=== PATIENT | male | born 1955 | race American Indian/Alaskan Native ===

== ENCOUNTER 2024-07-14 10:39 | Outpatient (AMB) | payer MEDICARE, SELFPAY ==
--- NOTE | 2024-07-14 10:54 | MHC.PC.OV ---
Vital Signs 07/14/24 10:56 07/14/24 11:06 Height 5 ft 9.29 in Weight 199 lb BMI 29.1 BP 150/80 H 160/94 H Blood Pressure Location Lt brachial Lt brachial Position Sitting Pulse 57 Pulse Source Pulse Oximeter Temp 97.3 F Temp Source Skin Pulse Oximetry (%) 99 Oxygen Delivery Method Room Air Intake Visit Reasons: establish care Intake Note: Patiet is here today for re-establishment of care. [employer] Utility Supervisor Required: No Scroll Assembler: Not Required per policy Accompanied by: Self / Same As Patient Allergies No Known Drug Allergies Allergy (Unknown, Verified 07/14/24 11:09) NONE Medication List - Last Reconciled 07/14/24 by ALY Morrow No Known Home Meds Tobacco use date assessed: 07/14/24 Fall risk assessment: No Falls in past year Last assessed Fall Risk: 07/14/24 Dental Screening Dental Screen Date: 07/14/24 Did you have a dental visit in the last 12 months?: Yes Did you have a dental problem in the last 6 months where you did not have access to dental care?: No Was dental information given to patient?: Patient has dentist HPI establish care HPI Details Previous PCP: use to see dr. 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 hx of tinnitus-reports never getting it check Medications: excedrin otc Family HX: His older sister had a congenital hole in her heart Problem: 1.nasal congesgtion/intermittent cough, no sore throat. no fevers, denies sinus pressure smoker: 1 pack a day occasional marijuana alcohol: no The patient is a 69-year-old male that reports past medical history of high blood pressure, tinnitus, old DVT treated with Coumadin and resolved. He is presenting to establish care. He was a patient Dr. Zimmer in the past. Reports last being evaluated in 2018 Reports that he is doing well and he has been staying to himself ever since COVID hit. Denies any shortness of breath, chest pain, heart palpitation, dizziness, reports that he is moving his bowels regularly, denies abdominal pain or any urinary symptoms. sports injuries: Patient reported that he shattered his left knee and had an arthroscopic surgery, ended up with two blood clots in his left calf. Reports that he was placed on Coumadin for a while and until it was discontinued. right eye glaucoma- reports that he has no eye issues, he wears readers. He reports that he saw an certified master locksmith in the past and they mentioned glaucoma in his right eye. ---will referred to a hair specialist Reports ringing in the ear. Bilateral ears normal-appearing we will refer to speech and hearing for an evaluation --flu vacine in right arm today [facility] Surgical History No pertinent past surgical history Social History Housing: House Alcohol intake: never Patient Tobacco Use Status: Current everyday Tobacco user Tobacco use type: Cigarette Cigarette Packs Per Day: 1 Cigarettes Per Day: 20 e-Cigarette/Vaping Use: Never Used Second Hand Smoke Exposure: Yes service: No Current occupational status: retired Cognitive needs: No Hearing needs: No Vision needs: No Questionnaire PHQ-9 Over the last 2 weeks, how often have you been bothered by any of the following problems? 1. Little interest or pleasure in doing things: not at all 2. Feeling down, depressed, or hopeless: not at all 3. Trouble falling or staying asleep, or sleeping too much: not at all 4. Feeling tired or having little energy: not at all 5. Poor appetite or overeating: not at all 6. Feeling bad about yourself - or that you are a failure or have let yourself or your family down: not at all 7. Trouble concentrating on things, such as reading the newspaper or watching television: not at all 8. Moving or speaking so slowly that other people could have noticed. Or the opposite - being so fidgety or restless that you have been moving around a lot more than usual: not at all 9. Thoughts that you would be better off or of hurting yourself in some way: not at all Total score: 0 Depression Screening Interpretation: Negative Depression Screening Done: Yes 32397 - PHQ-9 Billing: Yes Source: Developed by Drs. Elia Cortez, Leoncio Ramos and colleagues, with an educational barbara from [employer]. Thrive Questionnaire Date Thrive assessed: 07/14/24 I am a: Patient What is your living situation today?: I have a steady place to live Within the past 12 months, did the food you bought not last and you didn't have the money to get more?: Never true Within the past 12 months, did you worry whether your food would run out before you got money to buy more?: Never true Do you have trouble paying for medicines?: No Do you have trouble getting transportation to medical appointments?: No Do you have trouble paying your heating and electricity bill?: No Do you have trouble taking care of your child, family member or friend?: No Do you have trouble with day-to-day activities such as bathing, preparing meals, shopping, managing finances, etc.?: No Are you currently unemployed and looking for a job?: No Are you interested in more education?: No Please select the resources that you would like help with: None Currently or been in a relationship where the following occur: No concerns reported THRIVE Score: 0 AUDIT C Alcohol Use Questionnaire (AUDIT-C) 1. How often do you have a drink containing alcohol?: Never Total Score: 0 VIK-7 AMB Questionnaire VIK-7 Date VIK - 7 assessed: 07/14/24 Feeling nervous, anxious, or on edge: 0 = Not at all Not being able to stop or control worryin = Not at all Worrying too much about different things: 0 = Not at all Trouble relaxin = Not at all Being so restless that it is hard to sit still: 0 = Not at all Becoming easily annoyed or irritable: 0 = Not at all Feeling afraid as if something awful might happen: 0 = Not at all Total VIK-7 score (0-4 normal; 5-9 mild; 10-14 moderate; 15-21 severe): 0 Source: Developed by Drs. Elia Cortez, Leoncio Ramos and colleagues, with an educational barbara from [employer]. VIK-7 Assessment Billing VIK-7 Assessment Tool: VIK-7 Assessment 93145 Review of Systems Const Details: Denies chills, Denies fatigue, Denies fever(s), Denies headache(s) and Denies weakness HEENT Denies change in vision, Denies dizziness, Denies headache(s), Denies hearing loss, reports ringing in ears, reports nasal congestion, Denies sinus pain, Denies sinus pressure and Denies sore throat Card Denies chest pain, Denies lightheadedness, Denies dyspnea and Denies other (palpitations) Resp Reports cough, Denies dyspnea and Denies wheezing GI Denies abdominal pain, Denies melena, Denies hematochezia, Denies change in bowel habits, Denies dyspepsia and Denies nausea Denies hematuria and Denies dysuria Musc Denies abnormal gait, Denies myalgias, Denies arthralgias, Denies numbness and Denies tingling Skin/Breast Denies rash, Denies unusual bruising and Denies wounds Neuro Denies abnormal gait, Denies dizziness, Denies headache(s), Denies memory loss, Denies numbness, Denies Sensory deficit (Neuro), Denies tingling and Denies weakness Psych Denies anxiety, Denies depression and Denies memory loss Endo Denies cold intolerance, Denies fatigue, Denies heat intolerance, Denies polydipsia and Denies polyuria Skinny/Lymph Denies easy bleeding and Denies easy bruising Aller/Immun Denies wheezing Physical exam (Primary Care) Vital Signs: Last Vital Signs Temp 97.3 F 07/14/24 10:56 Pulse 57 07/14/24 10:56 BP 150/80 H 07/14/24 10:56 Pulse Ox 99 07/14/24 10:56 Oxygen Delivery Method Room Air 07/14/24 10:56 BMI result Body Mass Index 29.1 Tobacco/Smoking Status: Tobacco use Status Tobacco use date assessed 07/14/24 07/14/24 11:04 Patient Tobacco Use Status Current everyday Tobacco 07/14/24 11:04 Tobacco use type Cigarette 07/14/24 11:04 e-Cigarette/Vaping Use Never Used 07/14/24 11:04 PHQ-9: PHQ-9 Score PHQ-9: Total score 0 07/14/24 17:13 Depression Screening Interpretation: Negative Thrive Assessment: Date of Thrive Assessment Date Thrive assessed 07/14/24 07/14/24 11:04 Currently or been in a relationship where the following occur: No concerns reported Const Other: General: no acute distress, well developed, alert and awake Nutritional Appearance: well nourished Orientation/consciousness: patient oriented x3 HENMT Head: Yes normocephalic and Yes atraumatic Ears: TM's normal bilaterally General nose exam: Bilateral nares erythematous with boggy turbinates Mouth: Normal oral and palatal mucosa present and moist mucous membranes Teeth and gingiva: dentition normal Throat: Yes oropharynx normal Eyes Pupils: Equal, round and reactive pupils present and Pupil accommodation reflex normal EOM: EOMs intact bilaterally Neck Neck: Yes normal visual inspection, Yes no lymphadenopathy and Yes trachea midline Thyroid: Thyroid normal Carotids: no bruits Lymphatic: no lymphadenopathy noted Chest Chest palpation & inspection: normal inspection of the chest Resp Effort & Inspection: normal respiratory effort Auscultation: clear to auscultation bilaterally Cardio Rate: regular rate Rhythm: regular rhythm Heart sounds: S1 normal heart sound present, S2 normal heart sound present, no gallops, no murmurs and no rubs Bruits: no abdominal aortic bruits and no carotid bruits GI Palpation (GI): Abdominal soft and nontender to palpation Auscultation: normal bowel sounds General: Yes no CVA tenderness Back/Spine/Pelvis Back: no CVA tenderness Cervical Spine: cervical ROM normal and No Cervical spine tenderness Thoracic/Lumbar Spine: thoraco-lumbar ROM normal, No pain with thoraco-lumbar ROM, No thoracic spinal tenderness and No lumbar spinal tenderness Skin General: warm and dry. Normal skin color. Normal skin turgor Lesions: no lesions Rashes: no rashes Trauma: no lacerations or abrasions Wounds: no wounds Nails: normal Neuro General: patient oriented x3, gait normal Cranial nerves: Yes Equal, round and reactive pupils present Cognition (Neuro): normal cognition Gait exam (Neuro): Normal gait present Extrem General: Yes normal to inspection, No edema and No calf tenderness Psych Appearance: grossly normal Affect: normal affect Attitude: cooperative Thought process: Normal thought process present Office Procedures Flu Questionnaire Does the patient have a severe egg allergy?: No Does the patient have severe life threatening allergies?: No Does the patient have a fever or illness today?: No Has the patient ever had Guillain-[place] Syndrome?: No Has the patient ever had any past reaction to a flu shot?: No Immunizations Fluarix Triv [id number] (PF) 45 mcg (15 mcg x 3)/0.5 mL IM syringe Performing Provider: ALY Morrow [place] [facility] [facility] Administered by: Chandrika Hall LPN on 07/14/24 11:24 Dose Route Admin Location Dispensed Lot Number Expiration Date NDC Habilitation Specialist 0.5 mL IM Right Deltoid 0.5 mL [id number] 12/25/24 [id number] [employer] VIS Given Date VIS Provided VIS Publication Date 07/14/24 Single Vaccine 21 Eligibility Eligibility Date Funding Source Not VFC Eligible 07/14/24 Private Coding Level of Care Code New Pt Level 4 (76695) Diagnoses Glaucoma of right eye, unspecified glaucoma type H40.9 Glaucoma type: unspecified Laterality: right Tinnitus of both ears H93.13 Laterality: bilateral Elevated blood pressure reading R03.0 Nasal congestion R09.81 Subacute cough R05.2 Cough type: subacute Additional Codes VIK-7 Assessment Billing - VIK-7 Assessment Tool: VIK-7 Assessment 49576 ([id number]) PHQ-9 - 11191 - PHQ-9 Billing: Yes ([id number]) Time Spent (min) 35 Assessment & Plan Assessment & Plan (1) Glaucoma: Code(s): H40.9 - Unspecified glaucoma Category: Medical Qualifiers: Glaucoma type: unspecified Laterality: right Qualified Code(s): H40.9 - Unspecified glaucoma (2) Ringing in ears: Code(s): H93.19 - Tinnitus, unspecified ear Category: Medical Qualifiers: Laterality: bilateral Qualified Code(s): H93.13 - Tinnitus, bilateral Plan: Reports that he has ringing in the here for a long time but has not gotten it checked Ear canals and TMs normal appearing We will refer to the hearing and speech center for an evaluation (3) Elevated blood pressure reading: Code(s): R03.0 - Elevated blood-pressure reading, without diagnosis of hypertension Category: Medical Plan: Patient blood pressure was elevated in office today. Reports that he does not have high blood pressure but remembered being prescribed lisinopril 5 mg daily in the past Patient been seems to 2018 and is reestablishing care today. Will start the patient on lisinopril 5 mg daily and have him come back in 4 weeks for blood pressure check in a physical exam. Encouraged patient to monitor blood pressure frequently Reinforced a low-sodium diet (4) Nasal congestion: Code(s): R09.81 - Nasal congestion Category: Medical Plan: Reports a nasal congestion that has been causing him to cough intermittently Bilateral nares with erythema and boggy turbinate Flonase and loratadine ordered (5) Cough: Code(s): R05.9 - Cough, unspecified Category: Medical Qualifiers: Cough type: subacute Qualified Code(s): R05.2 - Subacute cough Plan: Ordered benzonatate 100 mg b.i.d. Encourage fluid intake Plan return in a month to get blood pressure check Orders: Orders Comprehensive [place]. Panel Fast Today I10 - Essential (primary) hypertension, Z00.00 - Encounter for general adult medical examination without abnormal findings Lipid Panel Today I10 - Essential (primary) hypertension, Z00.00 - Encounter for general adult medical examination without abnormal findings Vitamin D 25-OH Total Today I10 - Essential (primary) hypertension, Z00.00 - Encounter for general adult medical examination without abnormal findings UA CC w/rflx Micro + Cult Today I10 - Essential (primary) hypertension, Z00.00 - Encounter for general adult medical examination without abnormal findings Glucose Fasting Today I10 - Essential (primary) hypertension, Z00.00 - Encounter for general adult medical examination without abnormal findings PSA,Total (Free>4and<10) Today I10 - Essential (primary) hypertension, Z00.00 - Encounter for general adult medical examination without abnormal findings Influenza [id number] Immunization Today Z23 - Encounter for immunization Complete Blood Count Auto Diff Today I10 - Essential (primary) hypertension, Z00.00 - Encounter for general adult medical examination without abnormal findings TSH reflex Free T4 Today I10 - Essential (primary) hypertension, Z00.00 - Encounter for general adult medical examination without abnormal findings Referrals Speech and Hearing Referral H93.19 - Tinnitus, unspecified ear Ophthalmology Referral H40.9 - Unspecified glaucoma Medications: New fluticasone propionate 50 mcg/actuation (Allergy Relief (fluticasone)) administer into each nostril 1 spray intranasal BID 16 grams 3RF benzonatate 100 mg PO BID 60 caps 1RF lisinopril 5 mg PO DAILY 30 tabs 3RF loratadine 10 mg PO DAILY PRN 30 tabs 2RF allergy symptoms
[2024-07-14 10:56] VITALS: BP 150/80; PULSE 57; TEMP 36.3; O2SAT 99; BMI 29.1
[2024-07-14 11:06] VITALS: BP 160/94
== END 2024-07-14 11:48 | disposition home or self-care (01) ==
PROVIDERS: PCP Internal Medicine
DX: H40.9 Unspecified glaucoma (principal); H93.13 Tinnitus, bilateral; R03.0 Elevated blood-pressure reading, without diagnosis of hypertension; R09.81 Nasal congestion; R05.2 Subacute cough; Z23 Encounter for immunization

== ENCOUNTER → 2024-07-14 10:39 | Outpatient (BNVA) | payer MEDICARE, SELFPAY | PROVIDERS: PCP Internal Medicine | DX: Z23 Encounter for immunization (principal); H40.9 Unspecified glaucoma | CPT/HCPCS: 90471; 90656; 96127; 99202 ==

== ENCOUNTER 2024-08-04 06:53 | Emergency (ER) | payer MEDICARE, SELFPAY ==
--- NOTE | ~2024-08-04 | XR_ITS ---
EXAMINATION: XR RIBS 2 VIEWS RIGHT HISTORY: prior injury, worsening pain COMPARISON: Correlation is made with PA and lateral views of the chest performed earlier in the day. FINDINGS: Five views of the right ribs are submitted. There is a nondisplaced fracture of the lateral aspect of the 7th rib. No additional fracture is seen. There is subsegmental atelectasis at the right lung base. XR/XR ribs RT 2V IMPRESSION: Nondisplaced fracture of the right 7th rib. Electronically signed by: Elia Mcginnis MD 08/04/2024 10:13 AM RIVER
--- NOTE | ~2024-08-04 | XR_ITS ---
EXAMINATION: XR CHEST CLINICAL INFORMATION: right sided pain and cough. COMPARISON: None available. TECHNIQUE: 2 views of the chest were obtained. FINDINGS: The cardiac, hilar, and mediastinal contours are normal. The lungs are somewhat hyperaerated, however clear bilaterally. There is no pneumothorax or pleural effusion. There is no focal osseous or soft tissue abnormality. XR/XR chest 2V IMPRESSION: No active pulmonary disease. Electronically signed by: Harsha Canada MD 08/04/2024 08:01 AM RIVER
[2024-08-04 07:04] VITALS: BP 147/103; PULSE 75; RESP 18; TEMP 36.9; O2SAT 98; BMI 27.0
--- NOTE | 2024-08-04 09:44 | ED.GENADULT ---
HPI - General Adult General Chief complaint: General Medical Stated complaint: R Arm Pain Time Seen by Provider: 08/04/24 09:43 Source: patient, RN notes reviewed and old records reviewed Mode of arrival: ambulatory Limitations: no limitations History of Present Illness ED Provider: Ariane NEWTON narrative: Patient is a 69-year-old male presenting to the emergency department with complaint of right rib pain as well as cough productive of yellow sputum. Patient reports that he fell and injured his right ribs in early May but was never evaluated after the injury. States that he has had coughing for the last 4 days which has been aggravating his rib pain. Denies fevers. Denies chest pain or palpitations. MD complaint: rib pain, cough Treatments prior to arrival: none Related Data Previous Rx's ?Medication ?Instructions ?Recorded benzonatate 100 mg capsule 100 mg PO BID #60 caps 07/14/24 fluticasone propionate 50 1 spray intranasal BID #16 grams 07/14/24 mcg/actuation nasal spray,suspension (Allergy Relief (fluticasone)) lisinopril 5 mg tablet 5 mg PO DAILY #30 tabs 07/14/24 loratadine 10 mg tablet 10 mg PO DAILY PRN allergy 07/14/24 symptoms #30 tabs albuterol sulfate 90 mcg/actuation 2 puff inhalation Q4-6H PRN 08/04/24 aerosol inhaler shortness of breath or wheezing #6.7 grams azithromycin 250 mg tablet See Rx Instructions PO .COMPLEX #6 08/04/24 tabs benzonatate 100 mg capsule 100 mg PO TID PRN cough #20 caps 08/04/24 ibuprofen 600 mg tablet 600 mg PO TID PRN pain #20 tabs 08/04/24 lidocaine 5 % topical patch 1 patch topical DAILY #15 ea 08/04/24 prednisone 20 mg tablet 40 mg (2 x 20 mg) PO DAILY #10 tabs 08/04/24 Allergies Allergy/AdvReac Type Severity Reaction Status Date / Time No Known Drug Allergies Allergy Unknown NONE Verified 08/04/24 07:06 Review of Systems Review of Systems: As per HPI Yes all other systems are reviewed and are negative Constitutional: Constitutional: Reports as per HPI PMFSH Past Medical History Surgical History No pertinent past surgical history Social History Social History Housing: House Alcohol intake: never Patient Tobacco Use Status: Current everyday Tobacco user Tobacco use type: Cigarette Cigarette Packs Per Day: 1 Cigarettes Per Day: 20 e-Cigarette/Vaping Use: Never Used Second Hand Smoke Exposure: Yes Advance Directives: No Advance Directives Information Provided: No service: No Current occupational status: retired Cognitive needs: No Hearing needs: No Vision needs: No Physical Exam ED Vital Signs: Vital Signs - 24 hr 08/04/24 07:04 Temperature 98.4 F Pulse Rate 75 Respiratory Rate 18 Blood Pressure 147/103 H Pulse Oximetry 98 Oxygen Delivery Method Room Air BMI result Body Mass Index 27.0 Vital signs have been reviewed and appear to be correct. Blood pressure elevated. Heart rate normal. Respiratory rate normal. Temperature normal. Oxygen saturation normal. Const General: cooperative, healthy appearing and no acute distress Orientation/consciousness: oriented to person, oriented to place, oriented to time and patient oriented x3 Limitations: no limitations [facility] Head: Yes normocephalic and Yes atraumatic Ears: external ears normal General nose exam: Normal external nose present Face and sinus: Yes face symmetric Mouth: oropharynx normal and moist mucous membranes Throat: Yes uvula midline Eyes Pupils: Equal, round and reactive pupils present Neck Neck: Yes normal visual inspection and Yes supple Chest Chest palpation & inspection: normal inspection of the chest and tenderness rib right posterior-axillary line involving the 6th rib, involving the 7th rib and involving the 8th rib Resp Effort & Inspection: normal respiratory effort and able to speak in complete sentences Auscultation: clear to auscultation bilaterally and wheezes scattered wheezes Cardio Rate: regular rate Rhythm: regular rhythm Heart sounds: S1 normal heart sound present and S2 normal heart sound present GI Palpation (GI): Soft to palpation and nontender Auscultation: normoactive bowel sounds General: Yes no CVA tenderness Back/Spine/Pelvis Back: no CVA tenderness Skin General skin exam: elasticity normal and turgor normal Neuro General: oriented to person, oriented to place, oriented to time, patient oriented x3, moves all extremities, no focal motor deficits and CN's II-XI intact bilaterally Cranial nerves: Yes Equal, round and reactive pupils present Cognition (Neuro): normal cognition Extrem General: Yes full ROM, Yes no pedal edema and Yes no calf tenderness Psych Mental Status: mental status grossly normal Affect: normal affect Thought process: Normal thought process present Medical Decision Making Medical Decision Making [facility] Narrative: Patient is a 69-year-old male presenting to the emergency department with complaint of right rib pain as well as cough productive of yellow sputum. On exam patient is awake, A+Ox3, VS WNL, afebrile, normal neurological exam without focal deficits, physical exam findings as above. Given reported symptoms and physical exam findings, initial differential includes but is not limited to rib contusion versus fracture, bronchitis, pneumonia. X-ray chest without evidence of pneumonia. Xray ribs notable for nondisplaced 7th right rib fracture. My interpretation is in agreement with the radiologist's interpretation. Physical exam findings consistent with bronchitis. Patient updated on results and all questions answered. Will provide patient with incentive spirometer, treat for bronchitis with azithromycin, albuterol, prednisone. Will prescribe topical lidocaine patches and ibuprofen for rib pain. Discussed with patient that he should splint with pillows, apply ice intermittently. Follow up with PCP. Return precautions discussed at bedside. Patient verbalized understanding of and agreement with plan. Differential Diagnosis Differential Diagnoses: The differential diagnosis associated with the presentation includes as per [facility] Admission/Observation Consideration of admission/observation: Escalation of care including admission/observation considered Patient would have been admitted to the hospital had their work up had any findings where hospital admission was appropriate and their clinical presentation warranted hospital admission. Independent Interpretation I performed an independent interpretation of an: Plain X-Ray Interpretation: X-ray chest without evidence of pneumonia. Xray ribs notable for nondisplaced 7th right rib fracture. Radiology Impression Discussion of test interpretation with radiology: I have reviewed the radiologist's reading. Radiologist Impression: XR/XR ribs RT 2V IMPRESSION: Nondisplaced fracture of the right 7th rib. XR/XR chest 2V IMPRESSION: No active pulmonary disease. External Record Review External record reviewed: Inpatient record, Office record and Outpatient record Prescription Management I considered prescription management with: Pain Medication, Antibiotic and Other Discharge Plan Discharge Clinical Impression: Right rib fracture, Bronchitis Patient Disposition: Home, Self-Care Instructions: How to Use an Incentive Spirometer (ED), Rib Fracture (ED), Acute Bronchitis (ED) Additional Instructions: You were evaluated in the emergency department today for right-sided rib pain. Your x-ray showed a fracture of your right 7th rib. You were provided with an incentive spirometer, use this as instructed. You are being treated with a course of antibiotics, cough medicine, an inhaler and a short course of steroids for bronchitis. Follow-up with your primary care provider as needed. Return to the emergency department if you develop worsening pain, shortness of breath or difficulty breathing, fevers or any other new or concerning symptoms. Prescriptions: New lidocaine 5 % adhesive patch,medicated 1 patch topical DAILY Qty: 15 0RF Rx Instructions: leave on most painful area for up to 12 hrs azithromycin 250 mg tablet See Rx Instructions .ROUTE .COMPLEX Qty: 6 0RF Rx Instructions: For 250 mg dose pack: take 500 mg today (day 1), then 250 mg for 4 days (days 2-5) prednisone 20 mg tablet 40 mg PO DAILY Qty: 10 0RF albuterol sulfate 90 mcg/actuation HFA aerosol inhaler 2 puff inhalation Q4-6H PRN (Reason: shortness of breath or wheezing) Qty: 6.7 0RF benzonatate 100 mg capsule 100 mg PO TID PRN (Reason: cough) Qty: 20 0RF ibuprofen 600 mg tablet 600 mg PO TID PRN (Reason: pain) Qty: 20 0RF No Action lisinopril 5 mg tablet 5 mg PO DAILY Qty: 30 3RF fluticasone propionate [Allergy Relief (fluticasone)] 50 mcg/actuation spray,suspension 1 spray intranasal BID Qty: 16 3RF Rx Instructions: administer into each nostril loratadine 10 mg tablet 10 mg PO DAILY PRN (Reason: allergy symptoms) Qty: 30 2RF benzonatate 100 mg capsule 100 mg PO BID Qty: 60 1RF Print Language: Hebrew
--- NOTE | 2024-08-04 10:35 | PC.NURSE ---
incentive spirometry teaching applied to pt. pt verbalized teachback.
[2024-08-04 11:23] VITALS: BP 147/103; PULSE 75; RESP 18; TEMP 36.9; O2SAT 98
== END 2024-08-04 11:25 | disposition home or self-care (01) ==
PROVIDERS: Emergency Provider Emergency Medicine Emergency Medical Services; PCP Internal Medicine
DX: S22.31XA Fracture of one rib, right side, initial encounter for closed fracture (principal); J40 Bronchitis, not specified as acute or chronic; R07.89 Other chest pain; R05.9 Cough, unspecified; F17.210 Nicotine dependence, cigarettes, uncomplicated; X58.XXXA Exposure to other specified factors, initial encounter; Y93.9 Activity, unspecified; Y92.9 Unspecified place or not applicable; Y99.8 Other external cause status
CPT/HCPCS: 71046; 71100; 99282; 99283

== ENCOUNTER → 2024-08-04 07:08 | Outpatient (BNV) | payer MEDICARE, SELFPAY | PROVIDERS: PCP Internal Medicine; Visit Provider Radiology Diagnostic Radiology | DX: S22.31XA Fracture of one rib, right side, initial encounter for closed fracture (principal); R07.89 Other chest pain; R05.9 Cough, unspecified | CPT/HCPCS: 71046 ==

== ENCOUNTER 2024-08-14 11:31 | Outpatient (AMB) | payer MEDICARE, SELFPAY ==
--- NOTE | 2024-08-14 11:52 | A.OFFPC_ITS ---
Vital Signs 08/14/24 11:53 Height 6 ft Weight 191 lb 8 oz BMI 26.0 BP 130/78 Blood Pressure Location Lt brachial Position Sitting Pulse 58 Pulse Source Pulse Oximeter Temp 97.1 F Temp Source Temporal Artery Scan Pulse Oximetry (%) 96 Oxygen Delivery Method Room Air Intake Visit Reasons: pe Intake Note: Patient is here today for a physical. 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 Accompanied by: Self / Same As Patient Allergies No Known Drug Allergies Allergy (Unknown, Verified 08/14/24 12:04) NONE Medication List - Last Reconciled 08/14/24 by ALY Morrow albuterol sulfate 90 mcg/actuation 2 puffs inhalation Q4-6H PRN benzonatate 100 mg PO TID PRN fluticasone propionate 50 mcg/actuation (Allergy Relief (fluticasone)) 1 spray intranasal BID lidocaine 5% 1 patch topical DAILY lisinopril 5 mg PO DAILY loratadine 10 mg PO DAILY PRN Tobacco use date assessed: 08/14/24 Fall risk assessment: 1 Fall in past year Last assessed Fall Risk: 08/14/24 Dental Screening Dental Screen Date: 07/14/24 Did you have a dental visit in the last 12 months?: Yes Did you have a dental problem in the last 6 months where you did not have access to dental care?: Yes Was dental information given to patient?: Patient has dentist HPI pe HPI Details Dentist: He has appt next month for dentures Eye: referral was placed on last visit Snellen: Right: Left: Corrected vision: Questioned needing glasses STI screening:n/a Colonoscopy: due will put in a referral Pap Smer:n/a Flu:up to date COVID: declines Tdap: given in right deltoid Diet: regular Exercise: physical labor at work The patient is a 69-year-old male is presenting for annual physical He denies shortness of breath, denies chest pain, denies heart palpitation or dizziness Denies abdominal pain or change in bowel habits Denies urinary symptoms Patient continue to complain of tinnitus. A small piece of white object removed from left ear ENT referral in place Patient complain of right elbow discomfort, status post fall on ice. On exam: Elbow red, swollen and tender to palpation Meloxicam 15 mg ordered The patient is due for colonoscopy and a referral was placed Small cut to right thumb noted-mupirocin ointment ordered [facility] Surgical History No pertinent past surgical history Social History Housing: House Alcohol intake: never Patient Tobacco Use Status: Current everyday Tobacco user Tobacco use type: Cigarette Cigarette Packs Per Day: 1 Cigarettes Per Day: 20 e-Cigarette/Vaping Use: Never Used Second Hand Smoke Exposure: Yes service: No Current occupational status: retired Cognitive needs: No Hearing needs: No Vision needs: No Questionnaire Thrive Questionnaire Date Thrive assessed: 08/14/24 I am a: Patient What is your living situation today?: I have a steady place to live Within the past 12 months, did the food you bought not last and you didn't have the money to get more?: I choose not to answer this question Within the past 12 months, did you worry whether your food would run out before you got money to buy more?: I choose not to answer this question Do you have trouble paying for medicines?: I choose not to answer this question Do you have trouble getting transportation to medical appointments?: I choose not to answer this question Do you have trouble paying your heating and electricity bill?: I choose not to answer this question Do you have trouble taking care of your child, family member or friend?: I choose not to answer this question Do you have trouble with day-to-day activities such as bathing, preparing meals, shopping, managing finances, etc.?: I choose not to answer this question Are you currently unemployed and looking for a job?: I choose not to answer this question Are you interested in more education?: I choose not to answer this question Please select the resources that you would like help with: None THRIVE Score: 0 VIK-7 AMB Questionnaire VIK-7 Date VIK - 7 assessed: 07/14/24 Source: Developed by Drs. Elia Cortez, Dennise Hensley, Leoncio Cervantes and colleagues, with an educational barbara from [employer] Review of Systems Const Details: Denies chills, Denies fatigue, Denies fever(s), Denies headache(s) and Denies weakness HEENT Denies change in vision, Denies dizziness, Denies headache(s), Denies hearing loss, Denies nasal congestion, Denies sinus pain, Denies sinus pressure and Denies sore throat, + tinnitus in bilateral ears Card Denies chest pain, Denies lightheadedness, Denies dyspnea and Denies other (palpitations) Resp Denies cough, Denies dyspnea and Denies wheezing GI Denies abdominal pain, Denies melena, Denies hematochezia, Denies change in bowel habits, Denies dyspepsia and Denies nausea Denies hematuria and Denies dysuria Musc Denies abnormal gait, Denies myalgias, +arthralgias (right elbow), Denies numbness and Denies tingling Skin/Breast Denies rash, Denies unusual bruising and Denies wounds Neuro Denies abnormal gait, Denies dizziness, Denies headache(s), Denies memory loss, Denies numbness, Denies Sensory deficit (Neuro), Denies tingling and Denies weakness Psych Denies anxiety, Denies depression and Denies memory loss Endo Denies cold intolerance, Denies fatigue, Denies heat intolerance, Denies polydipsia and Denies polyuria Skinny/Lymph Denies easy bleeding and Denies easy bruising Aller/Immun Denies wheezing Physical exam (Primary Care) Vital Signs: Last Vital Signs Temp 97.1 F 08/14/24 11:53 Pulse 58 08/14/24 11:53 BP 130/78 08/14/24 11:53 Pulse Ox 96 08/14/24 11:53 Oxygen Delivery Method Room Air 08/14/24 11:53 BMI result Body Mass Index 26.0 Tobacco/Smoking Status: Tobacco use Status Tobacco use date assessed 08/14/24 08/14/24 12:00 Patient Tobacco Use Status Current everyday Tobacco 08/14/24 12:00 Tobacco use type Cigarette 08/14/24 12:00 e-Cigarette/Vaping Use Never Used 08/14/24 12:00 Thrive Assessment: Date of Thrive Assessment Date Thrive assessed 08/14/24 08/14/24 12:00 Const Other: General: no acute distress, well developed, alert and awake Nutritional Appearance: well nourished Orientation/consciousness: patient oriented x3 HENMT Head: Yes normocephalic and Yes atraumatic Ears: hearing grossly normal bilaterally and TM's normal bilaterally, +small piece of right arm check noted in left ear and was removed General nose exam: Normal external nose present and Normal nares present Mouth: Normal oral and palatal mucosa present and moist mucous membranes Eyes Pupils: Equal, round and reactive pupils present and Pupil accommodation reflex normal EOM: EOMs intact bilaterally Neck Neck: Yes normal visual inspection, Yes no lymphadenopathy and Yes trachea midline Thyroid: Thyroid normal Carotids: no bruits Lymphatic: no lymphadenopathy noted Chest Chest palpation & inspection: normal inspection of the chest Resp Effort & Inspection: normal respiratory effort Auscultation: clear to auscultation bilaterally Cardio Rate: regular rate Rhythm: regular rhythm Heart sounds: S1 normal heart sound present, S2 normal heart sound present, no gallops, no murmurs and no rubs Bruits: no abdominal aortic bruits and no carotid bruits GI Palpation (GI): No Abdominal aortic bruit present, Soft to palpation, nontender, No hepatosplenomegaly present and No Rebound tenderness present Auscultation: normal bowel sounds General: Yes no CVA tenderness Back/Spine/Pelvis Back: no CVA tenderness Cervical Spine: cervical ROM normal and No Cervical spine tenderness Thoracic/Lumbar Spine: thoraco-lumbar ROM normal, No pain with thoraco-lumbar ROM, No thoracic spinal tenderness and No lumbar spinal tenderness + right elbow erythema and pain Skin General: warm and dry. Normal skin color. Normal skin turgor Lesions: no lesions Rashes: no rashes Trauma: Right thumb cut Wounds: no wounds Nails: normal Neuro General: patient oriented x3, gait normal and CN's II-XI intact bilaterally Cranial nerves: Yes Equal, round and reactive pupils present Cognition (Neuro): normal cognition Gait exam (Neuro): Normal gait present Motor exam (neuro): 5/5 motor strength present throughout Sensory Exam: No Sensory deficit (Neuro) Deep tendon reflexes (DTR's): Right patellar reflex intensity grade: 2+ and Left patellar reflex intensity grade: 2+ Extrem General: Yes normal to inspection, No edema and No calf tenderness Psych Appearance: grossly normal Affect: normal affect Attitude: cooperative Thought process: Normal thought process present Immunizations Boostrix Tdap 2.5 Lf unit-8 mcg-5 Lf/0.5 mL intramuscular syringe Performing Provider: ALY Morrow Performing Location: [facility] Administered by: TRACI Arriola on 08/14/24 12:18 Dose Route Admin Location Dispensed Lot Number Expiration Date [employer] Business [employer]st 0.5 mL IM Right Deltoid 0.5 mL [id number] 10/14/26 [id number] [facility] V[facility] Given Date VIS Provided VIS Publication Date 08/14/24 Single Vaccine 21 Eligibility Eligibility Date Funding Source Not VFC Eligible 08/14/24 Private Coding Level of Care Code Est Pt Prev Care >65y(20909) Diagnoses Annual physical exam Z00.00 Glaucoma of right eye, unspecified glaucoma type H40.9 Glaucoma type: unspecified Laterality: right Tinnitus of both ears H93.13 Laterality: bilateral Elevated blood pressure reading R03.0 Nasal congestion R09.81 Subacute cough R05.2 Cough type: subacute Cut of skin of right thumb S61.011A Time Spent (min) 37 Assessment & Plan Assessment & Plan (1) Annual physical exam: Code(s): Z00.00 - Encounter for general adult medical examination without abnormal findings Category: Medical Plan: Patient is due for colonoscopy. A referral was placed to gastro. The patient is up-to-date on flu vaccine, tetanus shot given in office. The patient declines COVID vaccine. Labs ordered for the patient to do as soon as possible (2) Glaucoma: Code(s): H40.9 - Unspecified glaucoma Category: Medical Qualifiers: Glaucoma type: unspecified Laterality: right Qualified Code(s): H40.9 - Unspecified glaucoma Plan: Patient reports that he was told a while back that he had glaucoma in 1 of his eyes We will refer the patient to Ophthalmology (3) Ringing in ears: Code(s): H93.19 - Tinnitus, unspecified ear Category: Medical Qualifiers: Laterality: bilateral Qualified Code(s): H93.13 - Tinnitus, bilateral Plan: Reports that he has ringing in the here for a long time but has not gotten it checked Small piece of white object removed from left ear The patient was referral to ENT on the previous visits (4) Elevated blood pressure reading: Code(s): R03.0 - Elevated blood-pressure reading, without diagnosis of hypertension Category: Medical Plan: Reinforced a low-sodium diet Continue lisinopril 5 mg daily (5) Nasal congestion: Code(s): R09.81 - Nasal congestion Category: Medical Plan: Reports a nasal congestion that has been causing him to cough intermittently Bilateral nares with erythema and boggy turbinate Flonase and loratadine ordered ---resolved (6) Cough: Code(s): R05.9 - Cough, unspecified Category: Medical Qualifiers: Cough type: subacute Qualified Code(s): R05.2 - Subacute cough Plan: Ordered benzonatate 100 mg b.i.d. patient reports that the cough has improved significantly and he only coughs once in a while Encourage fluid intake (7) Cut of skin of right thumb: Code(s): S61.011A - Laceration without foreign body of right thumb without damage to nail, initial encounter Category: Medical Plan: Patient accidentally cut himself with a kitchen knife. Mupirocin ointment ordered Orders: Orders TDaP Immunization 08/14/24 Z23 - Encounter for immunization Referrals Gastroenterology Referral Z12.11 - Encounter for screening for malignant neoplasm of colon, Z12.12 - Encounter for screening for malignant neoplasm of rectum Medications: New meloxicam 15 mg PO DAILY 30 tabs 2RF mupirocin 2% 1 appl topical BID 22 grams 0RF S61.011A - Laceration without foreign body of right thumb without damage to nail, initial encounter
[2024-08-14 11:53] VITALS: BP 130/78; PULSE 58; TEMP 36.2; O2SAT 96; BMI 26.0
== END 2024-08-14 12:44 | disposition home or self-care (01) ==
PROVIDERS: PCP Internal Medicine
DX: Z23 Encounter for immunization (principal)

== ENCOUNTER → 2024-08-14 11:31 | Outpatient (BNVA) | payer MEDICARE, SELFPAY | PROVIDERS: PCP Internal Medicine | DX: Z00.00 Encounter for general adult medical examination without abnormal findings (principal); Z23 Encounter for immunization; H40.9 Unspecified glaucoma; H93.13 Tinnitus, bilateral; R03.0 Elevated blood-pressure reading, without diagnosis of hypertension; R05.2 Subacute cough; S61.011D Laceration without foreign body of right thumb without damage to nail, subsequent encounter | CPT/HCPCS: 90471; 90715; 99212 ==

== ENCOUNTER 2024-08-20 21:27 | Emergency (ER) | payer MEDICARE, SELFPAY ==
--- NOTE | 2024-08-20 | ECG_ITS ---
Test Reason : FOUND UNRESPONSIVE Blood Pressure : */* mmHG Vent. Rate : 68 BPM Atrial Rate : 68 BPM P-R Int : 182 ms QRS Dur : 96 ms QT Int : 424 ms P-R-T Axes : 71 14 67 degrees QTcB Int : 450 ms Sinus rhythm with occasional Premature ventricular complexes Nonspecific T wave abnormality Abnormal ECG No previous ECGs available Referred By: Generic ED Physician Electronically Signed By: NAGI SIMMONS
[2024-08-20 21:30] VITALS: BP 204/100; PULSE 86; O2SAT 97
[2024-08-20 21:40] VITALS: BP 157/84; PULSE 71; RESP 18; TEMP 36.8; O2SAT 98; BMI 25.1
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
[2024-08-20 22:17] LABS: Basophils Absolute Auto 0.1 X10*3/uL (0.0-0.2); Basophils Percent Auto 0.2 % (0-2); Eosinophils Absolute Auto 0.1 X10*3/uL (0.0-0.4); Eosinophils Percent Auto 0.3 % (0-4); Hematocrit 33.6 % (42.0-52.0); Hemoglobin 11.5 g/dl (14.0-18.0); Imm Gran Abs Auto 0.15 X10*3/uL (0.00-0.03); Imm Gran Pct Auto 0.6 % (0.0-0.4); Lymphocytes Absolute Auto 0.9 X10*3/uL (1.2-4.9); Lymphocytes Percent Auto 3.7 % (20-40); MANUAL DIFF FLAG SCAN; Mean Corpuscular HGB Conc 34.2 g/dl (31.0-36.0); Mean Corpuscular Hemoglobin 31.6 pg (27.0-33.0); Mean Corpuscular Volume 92.3 fL (80.0-98.0); Mean Platelet Volume 11.1 fL (9.4-12.4); Monocytes Percent Auto 4.2 % (2-11); Neutrophils Absolute Auto 22.3 x10*3/uL (2.0-8.3); Platelet Count 231 X10*3/uL (160-400); Red Blood Count 3.64 X10*6/uL (4.60-5.80); Red Cell Distribution Width 13.6 % (11.0-16.0); SCAN SMEAR FLAG 1; White Blood Count 24.5 X10*3/uL (4.8-10.8)
[2024-08-20 22:31] LABS: Anion Gap 12 (12-20); Blood Urea Nitrogen 29 mg/dL (9-16); Calcium 9.1 mg/dL (8.4-10.2); Carbon Dioxide 26 mmol/L (22-29); Chloride 108 mmol/L (96-108); Creatinine Clr Calc Pharmacy 60.9; Estimated Glomerular Filt Rate 56; Ethanol < 10 mg/dL; Glucose Random 152 mg/dL (60-115); Potassium 4.3 mmol/L (3.3-5.1); Sodium 142 mmol/L (135-145)
[2024-08-20 22:44] LABS: SLIDE REVIEW VERIFIED
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
--- NOTE | 2024-08-20 23:00 | PC.NURSE ---
Report given to Melba CROWLEY pt exits my care at this time.
--- NOTE | 2024-08-20 23:30 | PC.NURSE ---
Pt refusing all care, insisting on leaving. MD aware, pt refused to wait for discharge paperwork, alert and oriented X4, ambulating in the hein with steady gait. Pt refusing to stay, IV removed by t/w, primary RN made aware of situation, pt picked up by Jacqui.
--- NOTE | 2024-08-21 01:24 | PC.NURSE ---
pt was wanting to leave, not being cooperative with staff refusing care pt seen being walked out to the waiting room by charge and primary care. at change of shift.
[2024-08-21 01:26] VITALS: BP 157/84; PULSE 71; RESP 18; TEMP 36.8; O2SAT 98
== END 2024-08-20 23:30 | disposition home or self-care (01) ==
PROVIDERS: Emergency Provider Internal Medicine; PCP Internal Medicine
DX: R53.83 Other fatigue (principal); R40.4 Transient alteration of awareness; R94.31 Abnormal electrocardiogram [ECG] [EKG]; I10 Essential (primary) hypertension; F17.210 Nicotine dependence, cigarettes, uncomplicated; Z51.81 Encounter for therapeutic drug level monitoring; Z79.899 Other long term (current) drug therapy
CPT/HCPCS: 36415; 80048; 80307; 85025; 93005; 99283; 99284

== ENCOUNTER → 2024-08-20 22:02 | Outpatient (BNV) | payer MEDICARE, SELFPAY | PROVIDERS: Emergency Provider Internal Medicine; PCP Internal Medicine; Visit Provider Internal Medicine | DX: I49.3 Ventricular premature depolarization (principal); R94.31 Abnormal electrocardiogram [ECG] [EKG] | CPT/HCPCS: 93010 ==

== ENCOUNTER 2024-11-13 09:06 | Outpatient (REF) | payer MEDICARE, SELFPAY ==
[2024-11-13 09:21] LABS: MANUAL DIFF FLAG NO
[2024-11-13 10:25] LABS: Appearance Urine Clear; Color Urine Yellow; Glucose Urine UA Negative (Negative); Leukocyte Esterase Urine Negative (Negative); Nitrite Urine Negative (Negative); PH 6.5 (5.0-9.0); Specific Gravity - Urine 1.015 (1.005-1.025); UMIC TRIGGER UACC YES; Urine Blood Trace (Negative); Urine Ketones Negative (Negative); Urine Protein Negative (Neg-Trace)
[2024-11-13 10:29] LABS: Bacteria Urine None Seen (None Seen); Hyaline Casts Urine 0-2 /LPF (0-2); Squamous Epithelial Cell Urine 0-2 /HPF (0-2); WBC Urine 0-5 /HPF (0-5)
[2024-11-13 10:30] LABS: Basophils Absolute Auto 0.1 X10*3/uL (0.0-0.2); Basophils Percent Auto 0.8 % (0-2); Eosinophils Absolute Auto 0.4 X10*3/uL (0.0-0.4); Eosinophils Percent Auto 4.8 % (0-4); Hematocrit 42.2 % (42.0-52.0); Hemoglobin 14.2 g/dl (14.0-18.0); Imm Gran Abs Auto 0.03 X10*3/uL (0.00-0.03); Imm Gran Pct Auto 0.4 % (0.0-0.4); Lymphocytes Absolute Auto 2.5 X10*3/uL (1.2-4.9); Mean Corpuscular HGB Conc 33.6 g/dl (31.0-36.0); Mean Corpuscular Hemoglobin 31.3 pg (27.0-33.0); Mean Corpuscular Volume 93.2 fL (80.0-98.0); Mean Platelet Volume 11.2 fL (9.4-12.4); Monocytes Absolute Auto 0.7 X10*3/uL (0.1-1.2); Monocytes Percent Auto 8.8 % (2-11); Neutrophils Absolute Auto 4.6 x10*3/uL (2.0-8.3); Neutrophils Percent Auto 55.2 % (45-73); Platelet Count 275 X10*3/uL (160-400); Red Blood Count 4.53 X10*6/uL (4.60-5.80); Red Cell Distribution Width 13.8 % (11.0-16.0); White Blood Count 8.4 X10*3/uL (4.8-10.8)
[2024-11-13 11:36] LABS: PSA,Total (Free>4and<10) 1.42 ng/mL (0.00-4.00)
[2024-11-13 11:37] LABS: Alanine Aminotransferase 33 U/L (0-40); Albumin Level 4.4 g/dL (3.5-5.0); Alkaline Phosphatase 88 U/L (39-117); Anion Gap 11 (12-20); Aspartate Amino Transferase 30 U/L (5-37); Bilirubin Total 0.7 mg/dL (0.0-1.0); Blood Urea Nitrogen 27 mg/dL (9-16); Calcium 9.1 mg/dL (8.4-10.2); Carbon Dioxide 27 mmol/L (22-29); Chloride 106 mmol/L (96-108); Cholesterol 202 mg/dL (<200); Estimated Glomerular Filt Rate > 60; Glucose Fasting 113 mg/dL (60-99); HDL Cholesterol 55 mg/dL (>40); LDL Cholesterol Calculated 131 mg/dL (<100); Potassium 4.3 mmol/L (3.3-5.1); Sodium 140 mmol/L (135-145); Total Protein 7.2 g/dL (6.5-8.0); Triglycerides 84 mg/dL (<150)
[2024-11-13 11:44] LABS: TSH reflex Free T4 1.25 uIU/mL (0.32-4.0); Vitamin D 25-OH Total 30.3 ng/mL (>30)
== END 2024-11-13 09:07 | disposition home or self-care (01) ==
LOC: HO.LAB 09:06
PROVIDERS: PCP Internal Medicine
DX: I10 Essential (primary) hypertension (principal); H93.13 Tinnitus, bilateral; E78.00 Pure hypercholesterolemia, unspecified; R73.01 Impaired fasting glucose; H61.23 Impacted cerumen, bilateral; E55.9 Vitamin D deficiency, unspecified; M54.50 Low back pain, unspecified; Z00.00 Encounter for general adult medical examination without abnormal findings; Z12.5 Encounter for screening for malignant neoplasm of prostate
CPT/HCPCS: 36415; 80053; 80061; 81001; 82306; 84153; 84443; 85025; 99212

== ENCOUNTER 2024-11-13 09:26 | Outpatient (AMB) | payer MEDICARE, SELFPAY ==
--- NOTE | 2024-11-13 09:31 | MHC.PC.OV ---
Vital Signs 11/13/24 09:32 Height 6 ft Weight 185 lb 6 oz BMI 25.1 BP 140/80 H Blood Pressure Location Lt brachial Position Sitting Pulse 60 Pulse Source Pulse Oximeter Temp 97.1 F Temp Source Temporal Artery Scan Pulse Oximetry (%) 100 Oxygen Delivery Method Room Air Intake Visit Reasons: htn/right knee pain Intake Note: Patient is here to follow up on HTN, Right knee pain. 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 per policy Accompanied by: Self / Same As Patient Allergies No Known Drug Allergies Allergy (Unknown, Verified 11/13/24 09:39) NONE Medication List - Last Reconciled 11/13/24 by ALY Morrow albuterol sulfate 90 mcg/actuation 2 puffs inhalation Q4-6H PRN benzonatate 100 mg PO TID PRN fluticasone propionate 50 mcg/actuation (Allergy Relief (fluticasone)) 1 spray intranasal BID lidocaine 5% 1 patch topical DAILY lisinopril 5 mg PO DAILY loratadine 10 mg PO DAILY PRN meloxicam 15 mg PO DAILY mupirocin 2% 1 appl topical BID Tobacco use date assessed: 11/13/24 Fall risk assessment: No Falls in past year Last assessed Fall Risk: 11/13/24 Dental Screening Dental Screen Date: 07/14/24 HPI htn/right knee pain HPI Details The patient is a 69-year-old male presenting with chronic low back pain and hypertension. He describes his low back pain as a constricted, tight sensation extending to the neck on occasion, persisting for about three weeks. The patient attributes the pain to possibly pulling a muscle, as he is often on his feet and physically active without pay but has had no severe or acute events. He employs the use of a topical icy hot, which offers brief relief. His medical history includes a previously healed rib fracture, contributing to possible exacerbation upon inappropriate movement. Regular monitoring indicates his blood pressure typically reads around 140/80 mmHg, with his current medication regimen of low-dose antihypertensives potentially being augmented. His tinnitus has been long-standing, associated with audible disturbances in both ears, and he requests if there could be additional treatments or referrals discussing the high-pitched ringing which he experiences. [facility] Surgical History No pertinent past surgical history Social History Housing: House Alcohol intake: never Patient Tobacco Use Status: Current everyday Tobacco user Tobacco use type: Cigarette Cigarette Packs Per Day: 1 Cigarettes Per Day: 20 e-Cigarette/Vaping Use: Never Used Second Hand Smoke Exposure: Yes Substance Use Type: Marijuana service: No Current occupational status: retired Cognitive needs: No Hearing needs: No Vision needs: No Questionnaire PHQ-9 Over the last 2 weeks, how often have you been bothered by any of the following problems? 1. Little interest or pleasure in doing things: not at all 2. Feeling down, depressed, or hopeless: not at all 3. Trouble falling or staying asleep, or sleeping too much: not at all 4. Feeling tired or having little energy: not at all 5. Poor appetite or overeating: not at all 6. Feeling bad about yourself - or that you are a failure or have let yourself or your family down: not at all 7. Trouble concentrating on things, such as reading the newspaper or watching television: not at all 8. Moving or speaking so slowly that other people could have noticed. Or the opposite - being so fidgety or restless that you have been moving around a lot more than usual: not at all 9. Thoughts that you would be better off or of hurting yourself in some way: not at all Total score: 0 Depression Screening Interpretation: Negative Depression Screening Done: Yes Source: Developed by Drs. Elia Cortez, Dennise Hensley, Leoncio Cervantes and colleagues, with an educational barbara from [employer]. Thrive Questionnaire Date Thrive assessed: 08/14/24 Do you have trouble paying your heating and electricity bill?: I choose not to answer this question Do you have trouble taking care of your child, family member or friend?: I choose not to answer this question Do you have trouble with day-to-day activities such as bathing, preparing meals, shopping, managing finances, etc.?: I choose not to answer this question Are you currently unemployed and looking for a job?: I choose not to answer this question Are you interested in more education?: I choose not to answer this question Please select the resources that you would like help with: None Currently or been in a relationship where the following occur: No concerns reported THRIVE Score: 0 AUDIT C Alcohol Use Questionnaire (AUDIT-C) 1. How often do you have a drink containing alcohol?: Never Total Score: 0 VIK-7 AMB Questionnaire VIK-7 Date VIK - 7 assessed: 07/14/24 Feeling nervous, anxious, or on edge: 0 = Not at all Not being able to stop or control worryin = Not at all Worrying too much about different things: 0 = Not at all Trouble relaxin = Not at all Being so restless that it is hard to sit still: 0 = Not at all Becoming easily annoyed or irritable: 0 = Not at all Feeling afraid as if something awful might happen: 0 = Not at all Total VIK-7 score (0-4 normal; 5-9 mild; 10-14 moderate; 15-21 severe): 0 Source: Developed by Drs. Elia Cortez, Dennise Hensley, Leoncio Cervantes and colleagues, with an educational barbara from [employer]. Review of Systems Const Denies headache(s) Eyes Denies loss of vision ENT Denies vertigo, Denies dizziness, Denies headache(s), Reports tinnitus (Bilateral) and Denies sore throat Card Denies chest pain, Denies leg edema and Denies lightheadedness Resp Denies cough, Denies hemoptysis and Denies wheezing GI Denies abdominal pain, Denies melena, Denies constipation, Denies diarrhea and Denies vomiting Denies dysuria, Denies urinary frequency and Denies urinary urgency Musc Reports back pain (Describes as tightness upper and lower), Denies arthralgias, Denies joint swelling, Denies numbness and Denies tingling Neuro Denies Abnormal speech present, Denies vertigo, Denies dizziness, Denies headache(s), Denies loss of vision, Denies numbness and Denies tingling Skinny/Lymph Denies easy bleeding and Denies easy bruising Aller/Immun Denies wheezing Physical exam (Primary Care) Vital Signs: Last Vital Signs Temp 97.1 F 11/13/24 09:32 Pulse 60 11/13/24 09:32 BP 140/80 H 11/13/24 09:32 Pulse Ox 100 11/13/24 09:32 Oxygen Delivery Method Room Air 11/13/24 09:32 BMI result Body Mass Index 25.1 Tobacco/Smoking Status: Tobacco use Status Tobacco use date assessed 11/13/24 11/13/24 09:36 Patient Tobacco Use Status Current everyday Tobacco 11/13/24 09:36 Tobacco use type Cigarette 11/13/24 09:36 e-Cigarette/Vaping Use Never Used 11/13/24 09:36 PHQ-9: PHQ-9 Score PHQ-9: Total score 0 11/17/24 08:25 Depression Screening Interpretation: Negative Thrive Assessment: Date of Thrive Assessment Date Thrive assessed 08/14/24 11/13/24 09:36 Currently or been in a relationship where the following occur: No concerns reported Const General: healthy appearing, no acute distress, alert and awake Nutritional Appearance: well nourished Orientation/consciousness: oriented to person, oriented to place and oriented to time HENMT Ears: Abnormal EAC present cerumen impaction General nose exam: Abnormal mucous membranes and turbinates present erythematous Eyes Conjunctivae: conjunctivae normal Sclerae: sclerae normal Pupils: Equal, round and reactive pupils present Neck Neck: Yes no lymphadenopathy and Yes no JVD Thyroid: Thyroid normal Carotids: no bruits Resp Effort & Inspection: normal respiratory effort and not tachypneic Auscultation: no crackles, no rales, no rhonchi and no wheezes Cardio Rate: regular rate Rhythm: regular rhythm Heart sounds: no murmurs and normal S1 and S2 GI Palpation (GI): Soft to palpation, nontender, no hepatomegaly and no splenomegaly Auscultation: normal bowel sounds General: Yes no CVA tenderness Back/Spine/Pelvis Back: no CVA tenderness Cervical Spine: No Cervical spine tenderness Thoracic/Lumbar Spine: No thoracic spinal tenderness and No lumbar spinal tenderness Skin General skin exam: no rashes or lesions noted and dry skin Neuro General: oriented to person, oriented to place and oriented to time Cranial nerves: Yes Equal, round and reactive pupils present Speech: No Abnormal speech present Gait exam (Neuro): Normal gait present Motor exam (neuro): no tremor noted Extrem Right upper extremity: full ROM Left upper extremity: full ROM Right lower extremity: full ROM; no edema Left lower extremity: full ROM; no edema Results Reviewed Results Reviewed: Laboratory Tests 11/13/24 11/13/24 09:15 09:19 WBC 8.4 RBC 4.53 L D Hct 42.2 D MCV 93.2 MCH 31.3 MCHC 33.6 RDW 13.8 Plt Count 275 Sodium 140 Potassium 4.3 Chloride 106 Carbon Dioxide 27 Anion Gap 11 L BUN 27 H Creatinine 1.02 Estimated GFR > 60 Fasting Glucose 113 H Calcium 9.1 Total Bilirubin 0.7 AST 30 ALT 33 Alkaline Phosphatase 88 Triglycerides 84 Cholesterol 202 H LDL Cholesterol, Calc 131 H HDL Cholesterol 55 Total PSA 1.42 25-OH Vitamin D Total 30.3 TSH 1.25 Urine Color Yellow Urine Appearance Clear Urine pH 6.5 Ur Specific Mcintosh 1.015 Urine Protein Negative Urine Glucose (UA) Negative Urine Ketones Negative Urine Blood Trace H Urine Nitrite Negative Ur Leukocyte Esterase Negative Urine RBC 6-10 H Urine WBC 0-5 Ur Squamous Epith Cells 0-2 Urine Bacteria None Seen Hyaline Casts 0-2 Coding Level of Care Code Est Pt Level 3 (16051) Diagnoses Elevated blood pressure reading R03.0 Tinnitus of both ears H93.13 Laterality: bilateral Pure hypercholesterolemia E78.00 Impaired fasting glucose R73.01 Bilateral impacted cerumen H61.23 Vitamin D deficiency E55.9 Time Spent (min) 33 Assessment & Plan Assessment & Plan (1) Elevated blood pressure reading: Code(s): R03.0 - Elevated blood-pressure reading, without diagnosis of hypertension Category: Medical (2) Ringing in ears: Code(s): H93.19 - Tinnitus, unspecified ear Category: Medical Qualifiers: Laterality: bilateral Qualified Code(s): H93.13 - Tinnitus, bilateral (3) Pure hypercholesterolemia: Code(s): E78.00 - Pure hypercholesterolemia, unspecified Category: Medical (4) Impaired fasting glucose: Code(s): R73.01 - Impaired fasting glucose Category: Medical (5) Bilateral impacted cerumen: Code(s): H61.23 - Impacted cerumen, bilateral Category: Medical (6) Vitamin D deficiency: Code(s): E55.9 - Vitamin D deficiency, unspecified Category: Medical Plan The patient will have his antihypertensive medication dosage increased to 10 mg to help better control his blood pressure, reinforced low-salt diet and activity as tolerated. To address his back pain, I recommend increasing water consumption and possibly using muscle relaxants before bed, targeting muscle cramps and stiffness, continue stretching. For tinnitus, using Debrox as advised, followed by an irrigation procedure by ANAHI Pool if required, pending symptom continuation. An ENT consult may be arranged should conservative approaches provide insufficient improvement. We discussed ongoing weight maintenance through controlled nutrition to decrease high cholesterol. Mild anemia, will add b12 and folate on next labs. The patient will return in a listed timeline for follow-up, with an emphasis on adherence to hydration guidelines and pressure readings. Patient was informed and verbally consented to the use of an ambient scribe for clinic note documentation during this visit. Medications: New lisinopril 10 mg PO DAILY 30 tabs 3RF cyclobenzaprine 10 mg PO BEDTIME PRN 30 tabs 2RF muscle spasm Discontinued lisinopril Discontinued Reason: Duplicate 5 mg PO DAILY 30 tabs 3RF
[2024-11-13 09:32] VITALS: BP 140/80; PULSE 60; TEMP 36.2; O2SAT 100; BMI 25.1
== END 2024-11-13 10:09 | disposition home or self-care (01) ==
LOC: HO.HMCH 09:27
PROVIDERS: PCP Internal Medicine
DX: R03.0 Elevated blood-pressure reading, without diagnosis of hypertension (principal); H93.13 Tinnitus, bilateral; E78.00 Pure hypercholesterolemia, unspecified; R73.01 Impaired fasting glucose; H61.23 Impacted cerumen, bilateral; E55.9 Vitamin D deficiency, unspecified

== ENCOUNTER 2024-12-01 11:15 | Outpatient (AMB) | payer MEDICARE, SELFPAY ==
[2024-12-01 11:24] VITALS: BP 120/70; PULSE 77; TEMP 36.3; O2SAT 96; BMI 25.4
--- NOTE | 2024-12-01 11:24 | MHC.PC.OV ---
Vital Signs 12/01/24 11:24 Height 6 ft Weight 187 lb 8 oz BMI 25.4 BP 120/70 Blood Pressure Location Lt brachial Position Sitting Pulse 77 Pulse Source Pulse Oximeter Temp 97.3 F Temp Source Temporal Artery Scan Pulse Oximetry (%) 96 Oxygen Delivery Method Room Air Intake Visit Reasons: Ear Flush Intake Note: Patient is here to follow up on Ear flush. 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 [facility] Surgical History No pertinent past surgical history Social History Housing: House Alcohol intake: never Patient Tobacco Use Status: Current everyday Tobacco user Tobacco use type: Cigarette Cigarette Packs Per Day: 1 Cigarettes Per Day: 20 e-Cigarette/Vaping Use: Never Used Second Hand Smoke Exposure: Yes Substance Use Type: Marijuana service: No Current occupational status: retired Cognitive needs: No Hearing needs: No Vision needs: No Questionnaire Thrive Questionnaire Date Thrive assessed: 08/14/24 I am a: Patient What is your living situation today?: I have a steady place to live Within the past 12 months, did the food you bought not last and you didn't have the money to get more?: I choose not to answer this question Within the past 12 months, did you worry whether your food would run out before you got money to buy more?: I choose not to answer this question Do you have trouble paying for medicines?: I choose not to answer this question Do you have trouble getting transportation to medical appointments?: I choose not to answer this question Do you have trouble paying your heating and electricity bill?: I choose not to answer this question Do you have trouble taking care of your child, family member or friend?: I choose not to answer this question Do you have trouble with day-to-day activities such as bathing, preparing meals, shopping, managing finances, etc.?: I choose not to answer this question Are you currently unemployed and looking for a job?: I choose not to answer this question Are you interested in more education?: I choose not to answer this question Please select the resources that you would like help with: None Currently or been in a relationship where the following occur: No concerns reported THRIVE Score: 0 VIK-7 AMB Questionnaire VIK-7 Date VIK - 7 assessed: 07/14/24 Source: Developed by Drs. Elia Cortez, Dennise Hensley, Leoncio Cervantes and colleagues, with an educational barbara from [employer]. Review of Systems Eyes Details: Ear clogged feeling and decreased hearing bilaterally Physical exam (Primary Care) Vital Signs: Last Vital Signs Temp 97.3 F 12/01/24 11:24 Pulse 77 12/01/24 11:24 BP 120/70 12/01/24 11:24 Pulse Ox 96 12/01/24 11:24 Oxygen Delivery Method Room Air 12/01/24 11:24 BMI result Body Mass Index 25.4 Tobacco/Smoking Status: Tobacco use Status Tobacco use date assessed 12/01/24 12/01/24 11:29 Patient Tobacco Use Status Current everyday Tobacco 12/01/24 11:29 Tobacco use type Cigarette 12/01/24 11:29 e-Cigarette/Vaping Use Never Used 12/01/24 11:29 Thrive Assessment: Date of Thrive Assessment Date Thrive assessed 08/14/24 12/01/24 11:29 Currently or been in a relationship where the following occur: No concerns reported Const General: cooperative, healthy appearing, comfortable and no acute distress Orientation/consciousness: patient oriented x3 HENMT Head: Yes normocephalic Ears: hearing grossly normal bilaterally, TM normal on the right, TM normal on the left and Abnormal EAC present foreign body (Q tip cotton) on the left General nose exam: Normal external nose present Resp Effort & Inspection: normal respiratory effort Cardio Rate: regular rate Neuro General: patient oriented x3 Gait exam (Neuro): Normal gait present Psych Affect: normal affect Attitude: cooperative Insight: Good insight present (Psych) Judgement: Good judgement present (Psych) Coding Level of Care Code Procedure Only Diagnoses Bilateral impacted cerumen H61.23 Assessment & Plan Assessment & Plan (1) Bilateral impacted cerumen: Code(s): H61.23 - Impacted cerumen, bilateral Category: Medical Plan: There was no cerumen in bilateral ears, there was however a foreign body in the left ear which was successfully removed using ear lavage. Patient tolerated the procedure well left the room without complication. Bilateral TMs were visualized as intact with well aerated middle ear spaces without perforation or retraction. Follow up as needed for this concern Plan This note was constructed using voice recognition software. While every effort has been made to ensure accuracy and operator maintainer, still areas may have been included sometimes these areas may affect the content or meeting of the given symptoms. Total time spent caring for the patient today was 20 minutes. This includes time spent before the visit reviewing the chart, time spent during the visit, and time spent after the visit and documentation. Medications: Refilled benzonatate 100 mg PO TID PRN 20 caps 0RF cough
== END 2024-12-01 11:42 | disposition home or self-care (01) ==
LOC: HO.HMCH 11:16
PROVIDERS: PCP Internal Medicine
DX: T16.2XXA Foreign body in left ear, initial encounter (principal)

== ENCOUNTER → 2024-12-01 11:15 | Outpatient (BNVA) | payer MEDICARE, SELFPAY | PROVIDERS: PCP Internal Medicine | DX: H61.23 Impacted cerumen, bilateral (principal) | CPT/HCPCS: 69209; 99212 ==

== ENCOUNTER 2025-02-13 10:08 | Outpatient (AMB) | payer MEDICARE, SELFPAY ==
[2025-02-13 10:13] VITALS: BP 160/98; PULSE 68; RESP 18; TEMP 36.2; O2SAT 97; BMI 25.3
--- NOTE | 2025-02-13 10:13 | MHC.PC.OV ---
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 Accompanied by: Self / Same As Patient Allergies No Known Drug Allergies Allergy (Unknown, Verified 02/13/25 10:27) NONE Medication List - Last Reconciled 02/13/25 by ALY Morrow albuterol sulfate 90 mcg/actuation 2 puffs inhalation Q4-6H PRN benzonatate 100 mg PO TID PRN cyclobenzaprine 10 mg PO BEDTIME PRN fluticasone propionate 50 mcg/actuation (Allergy Relief (fluticasone)) 1 spray intranasal BID lidocaine 5% 1 patch topical DAILY lisinopril 10 mg PO DAILY loratadine 10 mg PO DAILY PRN meloxicam 15 mg PO DAILY mupirocin 2% 1 appl topical BID Tobacco use date assessed: 02/13/25 Fall risk assessment: No Falls in past year Last assessed Fall Risk: 02/13/25 Dental Screening Dental Screen Date: 02/13/25 Did you have a dental visit in the last 12 months?: Yes Did you have a dental problem in the last 6 months where you did not have access to dental care?: No Was dental information given to patient?: Patient has dentist HPI htn HPI Details The patient is a 70-year-old male presenting with hypertension management and sciatica. The patient has a history of essential hypertension, managed with Lisinopril, but he forgot to take his medication in the morning. He consumed two large coffees and smoked marijuana before the visit, which may have affected his blood pressure. The patient reports persistent sciatica, using [place] for relief, and acknowledges the need for a new mattress and stretching exercises. Reports that he has been sleeping on the hard floor. The patient experiences tinnitus, improved since earwax removal, and uses ear drops for earwax management. The patient reports that he took the lisinopril right before coming to the this appointment. He also had 2 large cups of coffee. Reports already smoked 4 cigarettes already. [facility] Surgical History No pertinent past surgical history Social History Housing: House Alcohol intake: never Patient Tobacco Use Status: Current everyday Tobacco user Tobacco use type: Cigarette Cigarette Packs Per Day: 1 Cigarettes Per Day: 20 e-Cigarette/Vaping Use: Never Used Second Hand Smoke Exposure: Yes Substance Use Type: Marijuana service: No Current occupational status: retired Cognitive needs: No Hearing needs: No Vision needs: No Questionnaire PHQ-9 Over the last 2 weeks, how often have you been bothered by any of the following problems? 1. Little interest or pleasure in doing things: not at all 2. Feeling down, depressed, or hopeless: not at all 3. Trouble falling or staying asleep, or sleeping too much: not at all 4. Feeling tired or having little energy: not at all 5. Poor appetite or overeating: not at all 6. Feeling bad about yourself - or that you are a failure or have let yourself or your family down: not at all 7. Trouble concentrating on things, such as reading the newspaper or watching television: not at all 8. Moving or speaking so slowly that other people could have noticed. Or the opposite - being so fidgety or restless that you have been moving around a lot more than usual: not at all 9. Thoughts that you would be better off or of hurting yourself in some way: not at all Total score: 0 Depression Screening Interpretation: Negative Depression Screening Done: Yes Source: Developed by Drs. Elia Cortez, Dennise Hensley, Leoncio Cervantes and colleagues, with an educational barbara from [employer]. Thrive Questionnaire Date Thrive assessed: 02/13/25 I am a: Patient What is your living situation today?: I have a steady place to live Within the past 12 months, did the food you bought not last and you didn't have the money to get more?: I choose not to answer this question Within the past 12 months, did you worry whether your food would run out before you got money to buy more?: I choose not to answer this question Do you have trouble paying for medicines?: I choose not to answer this question Do you have trouble getting transportation to medical appointments?: I choose not to answer this question Do you have trouble paying your heating and electricity bill?: I choose not to answer this question Do you have trouble taking care of your child, family member or friend?: I choose not to answer this question Do you have trouble with day-to-day activities such as bathing, preparing meals, shopping, managing finances, etc.?: I choose not to answer this question Are you currently unemployed and looking for a job?: I choose not to answer this question Are you interested in more education?: I choose not to answer this question Please select the resources that you would like help with: None Currently or been in a relationship where the following occur: No concerns reported THRIVE Score: 0 AUDIT C Alcohol Use Questionnaire (AUDIT-C) 1. How often do you have a drink containing alcohol?: Never Total Score: 0 VIK-7 AMB Questionnaire VIK-7 Date VIK - 7 assessed: 02/13/25 Feeling nervous, anxious, or on edge: 0 = Not at all Not being able to stop or control worryin = Not at all Worrying too much about different things: 0 = Not at all Trouble relaxin = Not at all Being so restless that it is hard to sit still: 0 = Not at all Becoming easily annoyed or irritable: 0 = Not at all Feeling afraid as if something awful might happen: 0 = Not at all Total VIK-7 score (0-4 normal; 5-9 mild; 10-14 moderate; 15-21 severe): 0 Source: Developed by Drs. Elia Cortez, Dennise Hensley, Leoncio Cervantes and colleagues, with an educational barbara from [employer]. Review of Systems Const Denies headache(s) Eyes Denies loss of vision ENT Denies vertigo, Denies dizziness, Denies headache(s) and Denies sore throat Card Denies chest pain, Denies leg edema and Denies lightheadedness Resp Denies cough, Denies hemoptysis and Denies wheezing GI Denies abdominal pain, Denies melena, Denies constipation, Denies diarrhea and Denies vomiting Denies dysuria, Denies urinary frequency and Denies urinary urgency Musc Reports arthralgias (Left knee), Denies joint swelling, Denies numbness, Reports radiating pain into limb (dull and on and off) and Denies tingling Skin/Breast Reports rash (Lower extremities) Neuro Denies Abnormal speech present, Denies behavioral changes, Denies vertigo, Denies dizziness, Denies headache(s), Denies loss of vision, Denies memory loss, Denies numbness and Denies tingling Psych Denies anxiety, Denies behavioral changes, Denies depression, Denies memory loss and Denies panic attacks Skinny/Lymph Denies easy bleeding and Denies easy bruising Aller/Immun Denies wheezing Physical exam (Primary Care) Vital Signs: Last Vital Signs Temp 97.1 F 02/13/25 10:13 Pulse 68 02/13/25 10:13 Resp 18 02/13/25 10:13 BP 160/98 H 02/13/25 10:13 Pulse Ox 97 02/13/25 10:13 Oxygen Delivery Method Room Air 02/13/25 10:13 BMI result Body Mass Index 25.3 Tobacco/Smoking Status: Tobacco use Status Tobacco use date assessed 02/13/25 02/13/25 10:22 Patient Tobacco Use Status Current everyday Tobacco 02/13/25 10:22 Tobacco use type Cigarette 02/13/25 10:22 e-Cigarette/Vaping Use Never Used 02/13/25 10:22 PHQ-9: PHQ-9 Score PHQ-9: Total score 0 02/13/25 10:32 Depression Screening Interpretation: Negative Thrive Assessment: Date of Thrive Assessment Date Thrive assessed 02/13/25 02/13/25 10:22 Currently or been in a relationship where the following occur: No concerns reported Const General: healthy appearing, no acute distress, alert and awake Nutritional Appearance: well nourished Orientation/consciousness: oriented to person, oriented to place and oriented to time [facility] Ears: TM's normal bilaterally General nose exam: Normal nasal mucous membranes and turbinates present Eyes Conjunctivae: conjunctivae normal Sclerae: sclerae normal Pupils: Equal, round and reactive pupils present Neck Neck: Yes no lymphadenopathy and Yes no JVD Thyroid: Thyroid normal Carotids: no bruits Resp Effort & Inspection: normal respiratory effort and not tachypneic Auscultation: no crackles, no rales, no rhonchi and no wheezes Cardio Rate: regular rate Rhythm: regular rhythm Heart sounds: no murmurs and normal S1 and S2 GI Palpation (GI): Soft to palpation, nontender, no hepatomegaly and no splenomegaly Auscultation: normal bowel sounds Skin General skin exam: dry skin Rashes: rashes noted (erythema, rashes consistent with poison iv) Neuro General: oriented to person, oriented to place and oriented to time Cranial nerves: Yes Equal, round and reactive pupils present Speech: No Abnormal speech present Gait exam (Neuro): Normal gait present Motor exam (neuro): no tremor noted Extrem Right upper extremity: full ROM Left upper extremity: full ROM Right lower extremity: full ROM; no edema Left lower extremity: full ROM and knee Details: no tenderness and no swelling; no edema Psych Mental Status: mental status grossly normal Speech and movement: Normal speech and movement present Affect: normal affect Attitude: cooperative Thought process: Normal thought process present Coding Level of Care Code Est Pt Level 3 (21291) Diagnoses Elevated blood pressure reading R03.0 Pure hypercholesterolemia E78.00 Impaired fasting glucose R73.01 Vitamin D deficiency E55.9 Tinnitus of both ears H93.13 Laterality: bilateral Bilateral impacted cerumen H61.23 Time Spent (min) 34 Assessment & Plan Assessment & Plan (1) Elevated blood pressure reading: Code(s): R03.0 - Elevated blood-pressure reading, without diagnosis of hypertension Category: Medical Plan: see below (2) Pure hypercholesterolemia: Code(s): E78.00 - Pure hypercholesterolemia, unspecified Category: Medical Plan: Discussed lifestyle modifications including dietary changes and physical activity (3) Impaired fasting glucose: Code(s): R73.01 - Impaired fasting glucose Category: Medical Plan: Encouraged low sugar/carbohydrate diet (4) Vitamin D deficiency: Code(s): E55.9 - Vitamin D deficiency, unspecified Category: Medical Plan: Encouraged vitamin-D supplement OTC (5) Ringing in ears: Code(s): H93.19 - Tinnitus, unspecified ear Category: Medical Qualifiers: Laterality: bilateral Qualified Code(s): H93.13 - Tinnitus, bilateral (6) Bilateral impacted cerumen: Code(s): H61.23 - Impacted cerumen, bilateral Category: Medical Plan: Resolved ear cleaning. Recommend continue debrox usage intermittently to prevent recurrence of buildup Plan The management plan for hypertension involves increasing the Lisinopril dosage to 20 mg and advising the patient to take an additional dose today. The patient is encouraged to reduce caffeine intake and regularly monitor blood pressure. For sciatica, the patient should consider purchasing a new mattress and incorporate stretching exercises into his routine. Topical treatments like [place] are recommended for symptomatic relief. Regarding tinnitus, the patient should continue using ear drops to manage earwax buildup. Recommended using calamine lotion in the lower extremities rash areas A referral for a colonoscopy has been placed, and the patient is advised to follow up on this screening. Patient was informed and verbally consented to the use of an ambient scribe for clinic note documentation during this visit. Medications: New lisinopril 20 mg PO DAILY 90 tabs 3RF Discontinued lisinopril Discontinued Reason: Doctor's Order 10 mg PO DAILY 30 tabs 3RF
== END 2025-02-13 10:52 | disposition home or self-care (01) ==
LOC: HO.HMCH 10:09
PROVIDERS: PCP Internal Medicine
DX: R03.0 Elevated blood-pressure reading, without diagnosis of hypertension (principal); E78.00 Pure hypercholesterolemia, unspecified; R73.01 Impaired fasting glucose; E55.9 Vitamin D deficiency, unspecified; H93.13 Tinnitus, bilateral; H61.23 Impacted cerumen, bilateral

== ENCOUNTER → 2025-02-13 10:08 | Outpatient (BNVA) | payer MEDICARE, SELFPAY | PROVIDERS: PCP Internal Medicine | DX: R03.0 Elevated blood-pressure reading, without diagnosis of hypertension (principal); E78.00 Pure hypercholesterolemia, unspecified; R73.01 Impaired fasting glucose; E55.9 Vitamin D deficiency, unspecified; H93.13 Tinnitus, bilateral; H61.23 Impacted cerumen, bilateral | CPT/HCPCS: 99212 ==

== ENCOUNTER 2025-05-17 08:44 | Outpatient (REF) | payer MEDICARE, SELFPAY ==
[2025-05-17 09:04] LABS: MANUAL DIFF FLAG NO
[2025-05-17 09:36] LABS: Appearance Urine Clear; Glucose Urine UA Negative (Negative); PH 5.5 (5.0-9.0); Specific Gravity - Urine 1.010 (1.005-1.025); UMIC TRIGGER UACC YES
[2025-05-17 09:38] LABS: Hematocrit 36.3 % (42.0-52.0); Hemoglobin 12.4 g/dl (14.0-18.0); Imm Gran Abs Auto 0.02 X10*3/uL (0.00-0.03); Imm Gran Pct Auto 0.2 % (0.0-0.4); Lymphocytes Absolute Auto 3.0 X10*3/uL (1.2-4.9); Mean Corpuscular HGB Conc 34.2 g/dl (31.0-36.0); Mean Corpuscular Hemoglobin 31.6 pg (27.0-33.0); Mean Corpuscular Volume 92.4 fL (80.0-98.0); NRBC Abs Auto 0.000 X10*3/uL (0.0-0.012); NRBC Pct Auto 0.0 /100WBC (0.0-0.2); Platelet Count 298 X10*3/uL (160-400); Red Blood Count 3.93 X10*6/uL (4.60-5.80); White Blood Count 8.7 X10*3/uL (4.8-10.8)
[2025-05-17 09:39] LABS: UACC Culture Trigger YES
--- OUTSIDE RECORDS SUMMARY | 2025-05-17 09:59 | XMS_ITS ---
Author Organization Unknown ENCOUNTERS Encounter Performer Location Date Diagnosis Diagnosis Status Emergency [address] [id number] GRACI[facility]A Pre Admit [address] [id number] Emergency Jaime Sciaruto [facility] [address] [address] [id number] GRACIELA Pre Admit Generic ED Physician [facility] [address] [place] [id number] [phone] *Note: Encounters from your own facility or health system may be excluded. Allergies, Adverse Reactions, Alerts Allergen Type Severity Identification Date Medications Name Date Quantity Days Supplied GPI Number
[2025-05-17 10:12] LABS: Alanine Aminotransferase 18 U/L (0-40); Albumin Level 4.1 g/dL (3.5-5.0); Alkaline Phosphatase 80 U/L (39-117); Anion Gap 11 (12-20); Aspartate Amino Transferase 36 U/L (5-37); Blood Urea Nitrogen 40 mg/dL (9-16); Calcium 9.0 mg/dL (8.4-10.2); Carbon Dioxide 26 mmol/L (22-29); Chloride 107 mmol/L (96-108); Cholesterol 173 mg/dL (<200); Estimated Glomerular Filt Rate 48; HDL Cholesterol 47 mg/dL (>40); Potassium 4.3 mmol/L (3.3-5.1); Sodium 140 mmol/L (135-145); Total Protein 6.9 g/dL (6.5-8.0); Triglycerides 106 mg/dL (<150)
== END 2025-05-17 08:45 | disposition home or self-care (01) ==
LOC: HO.LAB 08:44
PROVIDERS: PCP Internal Medicine
DX: I10 Essential (primary) hypertension (principal); E78.00 Pure hypercholesterolemia, unspecified; R73.01 Impaired fasting glucose; E55.9 Vitamin D deficiency, unspecified; M25.562 Pain in left knee; M25.552 Pain in left hip; M54.2 Cervicalgia; G89.29 Other chronic pain; N40.0 Benign prostatic hyperplasia without lower urinary tract symptoms; R31.21 Asymptomatic microscopic hematuria; K59.00 Constipation, unspecified; R05.2 Subacute cough; G47.00 Insomnia, unspecified; M62.838 Other muscle spasm
CPT/HCPCS: 36415; 80053; 80061; 81001; 82306; 83036; 84443; 85025; 87086; 87088; 87186; 99212

== ENCOUNTER 2025-05-17 09:09 | Outpatient (AMB) | payer MEDICARE, SELFPAY ==
--- NOTE | 2025-05-17 08:41 | A.OFFPC_ITS ---
Vital Signs 05/17/25 09:17 Height 6 ft Weight 205 lb 2 oz BMI 27.8 BP 130/70 Blood Pressure Location Lt brachial Position Sitting Pulse 71 Pulse Source Pulse Oximeter Temp 97.1 F Temp Source Temporal Artery Scan Pulse Oximetry (%) 98 Oxygen Delivery Method Room Air Intake Visit Reasons: 3 mo follow up htn Intake Note: Patient is here to follow up on HTN. 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 Resource Paraprofessional: Not Required per policy Accompanied by: Self / Same As Patient Allergies No Known Drug Allergies Allergy (Unknown, Verified 05/17/25 09:27) NONE Medication List - Last Reconciled 05/17/25 by ALY Morrow albuterol sulfate 90 mcg/actuation 2 puffs inhalation Q4-6H PRN amlodipine 5 mg PO DAILY benzonatate 100 mg PO BID PRN cyclobenzaprine 10 mg PO BEDTIME PRN fluticasone propionate 50 mcg/actuation (Allergy Relief (fluticasone)) 1 spray intranasal BID lidocaine 5% 1 patch topical DAILY lisinopril 20 mg PO DAILY loratadine 10 mg PO DAILY PRN meloxicam 15 mg PO DAILY mupirocin 2% 1 appl topical BID tamsulosin 0.4 mg PO DAILY Tobacco use date assessed: 05/17/25 Fall risk assessment: No Falls in past year Last assessed Fall Risk: 05/17/25 Dental Screening Dental Screen Date: 02/13/25 HPI HPI Comments History of Present Illness Details The patient is a 70 year old individual presenting for evaluation and management of multiple musculoskeletal complaints and chronic conditions. Reports completing his labs prior to this appointment and results are still pending. The patient reports that left knee pain has worsened. 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 Associated with this, the patient has developed new left hip pain, described as a sensation of the hip being dislocated when attempting to bend over, such as to tie a shoe. Additionally, the patient reports new neck pain and stiffness, requiring turning the entire body to look to the side, and also has a history of sciatica. The patient also experiences a sensation of something popping in the abdomen/intestines when rolling over in bed. Regarding past medical history, the patient developed two blood clots after a previous arthroscopic knee surgery. The patient reports a history of a re- injured fractured rib. Blood pressure is reportedly well-controlled with medication, with readings around 130. Urinary function is described as passing beautifully without burning, though a prior urinalysis showed trace blood and nitrates. The patient reports a tickle sensation with urination but denies daryl dysuria and has an upcoming urology appointment. Bowel movements have improved significantly and are now regular with medication, described as the best in a lifetime after prior issues with constipation. The patient has gained 14 pounds, which the patient views as a positive change. The patient is due for a colonoscopy, which has not been performed in approximately 15 years. The patient reports smoking. Health Maintenance A referral will be placed for a colonoscopy as the patient is overdue for screening. A follow-up appointment is scheduled for August to review imaging and lab results. Social History - Substance Use: The patient reports smo ernestine. - Functional Status: The patient reports being less active due to knee pain and walks with a modified gait. - Nutrition: Reports eating well. - Weight Management: Reports a recent we ight gain of 14 pounds. Results - Urinalysis (Prior): Revealed trace blo od and nitrates. - Labs (Today): Blood and urine samples were collected, with results pending. PENDING SALE TO [facility] Surgical History No pertinent past surgical history Social History Housing: House Alcohol intake: never Patient Tobacco Use Status: Current everyday Tobacco user Tobacco use type: Cigarette Cigarette Packs Per Day: 1 Cigarettes Per Day: 20 e-Cigarette/Vaping Use: Never Used Second Hand Smoke Exposure: Yes Substance Use Type: Marijuana service: No Current occupational status: retired Cognitive needs: No Hearing needs: No Vision needs: No Questionnaire PHQ-9 Over the last 2 weeks, how often have you been bothered by any of the following problems? Depression Screening Interpretation: Negative Depression Screening Done: Yes Source: Developed by Drs. Elia Cortez, Dennise Hensley, Leoncio hummel nd colleagues, with an educational barbara from [employer]. Thrive Questionnaire Date Thrive assessed: 08/14/24 Currently or been in a relationship where the following occur: No concerns reported THRIVE Score: 0 VIK-7 AMB Questionnaire VIK-7 Date VIK - 7 assessed: 02/13/25 Source: Developed by Drs. Elia Cortez, Dennise Hensley, Leoncio Cervantes and colleagues, with an educational barbara from [employer]. Review of Systems Narrative Review of Systems - Constitutional: Reports a 14-pound weight gain. - Respiratory: Reports a chronic cough. - Gastrointestinal: Reports regular bowel movements with medication, which is an improvement from prior constipation. - Reports a sensation of something popping in the abdomen when rolling over. - Genitourinary: Reports normal urination flow. - Denies dysuria, but reports a tickle sensation with urination. - Musculoskeletal: Reports worsening left knee pain and new left hip pain described as a feeling of dislocation with movement. - Reports neck pain and stiffness. - Denies arm pain. - Neurological: Reports a history of sciatica. Const Denies headache(s) Eyes Denies loss of vision ENT Denies vertigo, Denies dizziness, Denies headache(s), Reports neck pain and Denies sore throat Card Denies chest pain, Denies leg edema and Denies lightheadedness Resp Reports cough, Denies hemoptysis and Denies wheezing GI Denies abdominal pain, Denies melena, Reports constipation (On and off), Denies diarrhea and Denies vomiting Denies dysuria, Reports nocturia (Improved on treatment), Denies urinary frequency and Denies urinary urgency Musc Reports arthralgias (Left knee, left hip), Denies joint swelling, Reports neck pain, Denies numbness, Reports radiating pain into limb (dull and on and off) and Denies tingling Skin/Breast Reports rash (Lower extremities) Neuro Denies Abnormal speech present, Denies behavioral changes, Denies vertigo, Denies dizziness, Denies headache(s), Denies loss of vision, Denies memory loss, Denies numbness and Denies tingling Psych Denies anxiety, Denies behavioral changes, Denies depression, Denies memory loss and Denies panic attacks Skinny/Lymph Denies easy bleeding and Denies easy bruising Aller/Immun Denies wheezing Physical exam (Primary Care) Vital Signs: Last Vital Signs Temp 97.1 F 05/17/25 09:17 Pulse 71 05/17/25 09:17 BP 130/70 05/17/25 09:17 Pulse Ox 98 05/17/25 09:17 Oxygen Delivery Method Room Air 05/17/25 09:17 BMI result Body Mass Index 27.8 Tobacco/Smoking Status: Tobacco use Status Tobacco use date assessed 05/17/25 05/17/25 09:21 Patient Tobacco Use Status Current everyday Tobacco 05/17/25 08:42 Tobacco use type Cigarette 05/17/25 08:42 e-Cigarette/Vaping Use Never Used 05/17/25 08:42 Depression Screening Interpretation: Negative Thrive Assessment: Date of Thrive Assessment Date Thrive assessed 08/14/24 05/17/25 08:42 Currently or been in a relationship where the following occur: No concerns rep orted Narrative Physical Exam - Neck: Limited range of motion with flexion, extension, and rotation. - Stiffness noted on extension. - No tenderness to palpation. - Lungs: Clear to auscultation bilaterally. Const General: healthy appearing, no acute distress, alert and awake Nutritional Appearance: well nourished Orientation/consciousness: oriented to person, oriented to place and oriented to time HENMT Ears: TM's normal bilaterally General nose exam: Normal nasal mucous membranes and turbinates present Eyes Conjunctivae: conjunctivae normal Sclerae: sclerae normal Pupils: Equal, round and reactive pupils present Neck Neck: Yes no lymphadenopathy and Yes no JVD Thyroid: Thyroid normal Carotids: no bruits Resp Effort & Inspection: normal respiratory effort and not tachypneic Auscultation: no crackles, no rales, no rhonchi and no wheezes Cardio Rate: regular rate Rhythm: regular rhythm Heart sounds: no murmurs and normal S1 and S2 GI Palpation (GI): Soft to palpation, nontender, no hepatomegaly and no splenomegaly Auscultation: normal bowel sounds General: Yes no CVA tenderness Back/Spine/Pelvis Back: no CVA tenderness Cervical Spine: No Cervical spine tenderness Thoracic/Lumbar Spine: No lumbar spinal tenderness Skin General skin exam: dry skin Neuro General: oriented to person, oriented to place and oriented to time Cranial nerves: Yes Equal, round and reactive pupils present Speech: No Abnormal speech present Gait exam (Neuro): Normal gait present Motor exam (neuro): no tremor noted Extrem Right upper extremity: full ROM Left upper extremity: full ROM Right lower extremity: full ROM; no edema Left lower extremity: full ROM, hip/thigh Details: no tenderness and no swelling and knee Details: no tenderness and no swelling; no edema Psych Mental Status: mental status grossly normal Speech and movement: Normal speech and movement present Affect: normal affect Attitude: cooperative Thought process: Normal thought process present Coding Level of Care Code Est Pt Level 4 (83721) Diagnoses Pure hypercholesterolemia E78.00 Impaired fasting glucose R73.01 Vitamin D deficiency E55.9 Hypertension, unspecified type I10 Hypertension type: unspecified Cervical pain M54.2 Chronic pain of left knee M25.562; G89.29 Chronicity: chronic Left hip pain M25.552 Benign prostatic hyperplasia, unspecified whether lower urinary tract symptoms present N40.0 Lower urinary tract symptom presence: unspecified whether lower urinary tract symptoms present Asymptomatic microscopic hematuria R31.21 Hematuria type: asymptomatic microscopic Constipation, unspecified constipation type K59.00 Constipation type: unspecified constipation type Subacute cough R05.2 Cough type: subacute Time Spent (min) 34 Assessment & Plan Assessment & Plan (1) Pure hypercholesterolemia: Code(s): E78.00 - Pure hypercholesterolemia, unspecified Category: Medical Plan: Discussed lifestyle modifications including dietary changes and physical activity (2) Impaired fasting glucose: Code(s): R73.01 - Impaired fasting glucose Category: Medical Plan: Encouraged low sugar/carbohydrate diet (3) Vitamin D deficiency: Code(s): E55.9 - Vitamin D deficiency, unspecified Category: Medical Plan: Encouraged vitamin-D supplement OTC (4) HTN (hypertension): Code(s): I10 - Essential (primary) hypertension Category: Medical Qualifiers: Hypertension type: unspecified Qualified Code(s): I10 - Essential (primary) hypertension Plan: See below (5) Cervical pain: Code(s): M54.2 - Cervicalgia Category: Medical Plan: See below (6) Left knee pain: Code(s): M25.562 - Pain in left knee Category: Medical Qualifiers: Chronicity: chronic Qualified Code(s): M25.562 - Pain in left knee; G89.29 - Other chronic pain Plan: See below (7) Left hip pain: Code(s): M25.552 - Pain in left hip Category: Medical Plan: See below (8) BPH (benign prostatic hyperplasia): Code(s): N40.0 - Benign prostatic hyperplasia without lower urinary tract symptoms Category: Medical Qualifiers: Lower urinary tract symptom presence: unspecified whether lower urinary tract symptoms present Qualified Code(s): N40.0 - Benign prostatic hyperplasia without lower urinary tract symptoms Plan: See below (9) Hematuria: Code(s): R31.9 - Hematuria, unspecified Category: Medical Qualifiers: Hematuria type: asymptomatic microscopic Qualified Code(s): R31.21 - Asymptomatic microscopic hematuria Plan: See below (10) Constipation: Code(s): K59.00 - Constipation, unspecified Category: Medical Qualifiers: Constipation type: unspecified constipation type Qualified Code(s): K59.00 - Constipation, unspecified Plan: See below (11) Cough: Code(s): R05.9 - Cough, unspecified Category: Medical Qualifiers: Cough type: subacute Qualified Code(s): R05.2 - Subacute cough Plan: See below Plan Plan Patient was informed and verbally consented to the use of an ambient scribe for clinic note documentation during this visit. 1. Left Knee Pain The patient's left knee pain is worsening. An X-ray of the left knee will be ordered to re-evaluate its condition, as the patient reports it has no ligaments. 2. Left Hip Pain The patient reports new left hip pain. An X-ray of the hip will be ordered for further evaluation. 3. Neck Pain The patient presents with neck pain and stiffness, with limited range of motion observed on exam. A neck X-ray will be ordered to investigate for possible arthritis or other underlying issues. 4. Hematuria And Suspected Urinary Tract Infection A previous urinalysis showed trace blood and nitrates. A repeat urinalysis was performed today, and results will be reviewed to assess for a UTI. The patient will follow up with urology as scheduled. 5. Hypertension The patient's blood pressure is well-controlled on the current medication regimen, which includes lisinopril and amlodipine 5 mg. Plan is to continue current management. 6. Constipation The patient's constipation has resolved, and bowel movements are now regular with the current medication. Continue current treatment. 7. Chronic Cough The patient has a persistent cough and uses tobacco. A refill for the patient's cough medication will be provided, with an increased quantity. 8. Insomnia/Muscle Spasms A refill for the muscle relaxer that the patient takes at night will be provided to help with relaxation and sleep. Discussion Notes I discussed the plan to further evaluate the patient's musculoskeletal complaints. I explained that we will be ordering X-rays of the left knee, left hip, and neck to assess for degenerative changes or other causes for the patient's worsening pain and stiffness. We reviewed the previous urinalysis findings of trace blood and nitrates, and I informed the patient that the new urine sample collected today would be analyzed to check for a urinary tract infection. We discussed that the patient's blood pressure and bowel movements are well-controlled with the current medications. I informed the patient that I would place a referral for a colonoscopy as it is overdue. Refills for the muscle relaxant and cough medicine will be sent. We agreed on a follow-up visit in August to review all results and reassess the patient's condition. Patient Instructions - Please go to the imaging center to get X-rays of your left knee, left hip, and neck. - We collected blood and urine samples today and will call you with the results. - Continue taking your medications for blood pressure and constipation as they are working well. - We will send refills for your muscle relaxer and cough medicine to your pharmacy. - Make sure to keep your scheduled appointment with the urology specialist. - Our office is putting in a referral for a colonoscopy; the scheduling department from the hospital will contact you. - Please schedule a follow-up appointment to see me in August. Orders: Orders XR knee LT 3V Today M25.562 - Pain in left knee XR cervical spine 3V Today M54.2 - Cervicalgia XR hip LT min 2V Today M25.552 - Pain in left hip Medications: Refilled benzonatate 100 mg PO BID PRN 14 caps 0RF cough benzonatate 100 mg PO BID PRN 30 caps 0RF cough cyclobenzaprine 10 mg PO BEDTIME PRN 30 tabs 2RF muscle spasm
[2025-05-17 09:17] VITALS: BP 130/70; PULSE 71; TEMP 36.2; O2SAT 98; BMI 27.8
--- OUTSIDE RECORDS SUMMARY | 2025-05-17 11:42 | XMS_ITS ---
Author Organization Unknown ENCOUNTERS Encounter Performer Location Date Diagnosis Diagnosis Status Emergency [address] [id number] GRACIELA Pre Admit [address] [id number] Emergency Jaime Sciaruto [facility] [address] [address] [id number] GRACIELA Pre Admit Generic ED Physician [facility] [address] [place] [id number] [phone] *Note: Encounters from your own facility or health system may be excluded. Allergies, Adverse Reactions, Alerts Allergen Type Severity Identification Date Medications Name Date Quantity Days Supplied GPI Number
== END 2025-05-17 09:48 | disposition home or self-care (01) ==
LOC: HO.HMCH 09:09
PROVIDERS: PCP Internal Medicine
DX: E78.00 Pure hypercholesterolemia, unspecified (principal); R73.01 Impaired fasting glucose; E55.9 Vitamin D deficiency, unspecified; I10 Essential (primary) hypertension; M54.2 Cervicalgia; M25.562 Pain in left knee; G89.29 Other chronic pain; M25.552 Pain in left hip; N40.0 Benign prostatic hyperplasia without lower urinary tract symptoms; R31.21 Asymptomatic microscopic hematuria; K59.00 Constipation, unspecified; R05.2 Subacute cough

== ENCOUNTER 2025-06-05 15:16 | Outpatient (REF) | payer MEDICARE, SELFPAY ==
--- OUTSIDE RECORDS SUMMARY | 2025-06-05 22:20 | XMS_ITS ---
Author Organization Unknown ENCOUNTERS Encounter Performer Location Date Diagnosis Diagnosis Status Emergency [address] [address] [id number] [facility] Pre Admit [address] [id number] Emergency Jaime Sciaruto [facility] [address] [id number] GRACIELA Pre Admit Generic ED Physician [facility] [address] [place] [phone] *Note: Encounters from your own facility or health system may be excluded. Allergies, Adverse Reactions, Alerts Allergen Type Severity Identification Date Medications Name Date Quantity Days Supplied GPI Number
== END 2025-06-05 15:17 | disposition home or self-care (01) ==
LOC: HO.LAB 15:16
PROVIDERS: PCP Internal Medicine; Visit Provider Urology
DX: R31.21 Asymptomatic microscopic hematuria (principal); N40.0 Benign prostatic hyperplasia without lower urinary tract symptoms; Z13.89 Encounter for screening for other disorder
CPT/HCPCS: 51798; 81003; 88112; 99202

== ENCOUNTER 2025-06-05 15:16 | Outpatient (AMB) | payer MEDICARE, SELFPAY ==
--- NOTE | 2025-06-05 15:17 | MHC.OFFVIS ---
Intake Visit Reasons: microscopic hematuria/ BPH SET UA Intake Note: Reason for Visit: New Patient Microscopic Hematuria/BPH Urology Meds: Tamsulosin Blood Thinners: None Antibiotic Allergy: None Labs: PSA- 1.42 (11/13/2024) Last Culture: 05/17/2025 Imaging: None Last PVR: None PVR: 41ML Family History: Prostate Cancer? no Bladder Cancer? no Kidney Cancer? no Smoking History? Current Previous Urology? 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 He is a patient of Dr. Zimmer. He is seen for the following urologic conditions - microscopic hematuria - lower urinary tract symptoms UA today negative Urinary symptoms predominantly weakness of stream, urinary urge. High bother score Trial alpha-wyatt Six-month follow-up bladder ultrasound Lower urinary tract symptoms Progressive weakness of stream with urinary urge Nocturia x2 No prior medications PSA - 11/19 1.4 PFSH Surgical History No pertinent past surgical history Social History Housing: House Alcohol intake: never Patient Tobacco Use Status: Current everyday Tobacco user Tobacco use type: Cigarette Cigarette Packs Per Day: 1 Cigarettes Per Day: 20 e-Cigarette/Vaping Use: Never Used Second Hand Smoke Exposure: Yes Substance Use Type: Marijuana service: No Current occupational status: retired Cognitive needs: No Hearing needs: No Vision needs: No Review of Systems Const Denies chills and Denies fever(s) Card Reports no additional complaints and Denies syncope Resp Denies cough GI Denies abdominal pain and Denies heartburn Reports as per HPI and Denies change in libido Neuro Denies syncope Psych Denies change in libido Endo Denies change in libido Physical Exam Const General: cooperative, healthy appearing, comfortable and no acute distress Orientation/consciousness: patient oriented x3 HEENT Face and sinus: Yes normal facial exam Mouth: moist mucous membranes Neck Neck: Yes normal visual inspection, Yes full ROM and Yes trachea midline Chest Chest palpation & inspection: normal inspection of the chest Resp Effort & Inspection: normal respiratory effort, able to speak in complete sentences and no respiratory distress GI Inspection: Yes normal to inspection Back/Spine/Pelvis Cervical Spine: normal cervical lordosis Thoracic/Lumbar Spine: thoracic and lumbar spine normal to inspection Skin General skin exam: no rashes or lesions noted Neuro General: patient oriented x3, gait normal, tone normal and moves all extremities Extrem General: Yes normal to inspection and Yes capillary refill normal Office Procedures Post Void Residual Post Residual Void Post Void Residual (PVR): 41 [id number] Void Residual by ultrasound Results AMB Urinalysis, Automated UA Leukoctes 0 Hannah/uL Last Edit by Karolina Murphy [facility] on 06/05/25 15:34 UA Nitrite Negative Last Edit by Karolina Murphy A on 06/05/25 15:34 UA Urobilinogen 0.2 mg/dL Last Edit by Karolina Murphy A on 06/05/25 15:34 UA Protein 0 mg/dL Last Edit by Karolina Murphy A on 06/05/25 15:34 UA pH 7.0 Last Edit by Karolina Murphy [facility] on 06/05/25 15:34 UA Blood 25 Yariel/uL Last Edit by Karolina Murphy A on 06/05/25 15:34 UA Specific [place] 1.015 Last Edit by Karolina Murphy [facility] on 06/05/25 15:34 UA Ketone Negative Last Edit by Karolina Murphy A on 06/05/25 15:34 UA Bilirubin 0 mg/dL Last Edit by Karolina Murphy [facility] on 06/05/25 15:34 UA Glucose 0 mg/dL Last Edit by Karolina Murphy [facility] on 06/05/25 15:34 Results Reviewed Results Reviewed: Laboratory Last Values Urine pH (Auto) 7.0 06/05/25 15: Specific [place] (Auto) 1.015 06/05/25 15:25 Urine Protein (Auto) 0 mg/dL 06/05/25 15:25 Glucose (UA)(Auto) 0 mg/dL 06/05/25 15:25 Urine Ketones (Auto) Negative 06/05/25 15:25 Urine Blood (Auto) 25 Yariel/uL 06/05/25 15:25 Urine Nitrite (Auto) Negative 06/05/25 15:25 Urine Bilirubin (Auto) 0 mg/dL 06/05/25 15:25 Urine Urobilinogen (Auto) 0.2 mg/dL 06/05/25 15:25 Leukocyte Esterase (Auto) 0 Hannah/uL 06/05/25 15:25 Assessment & Plan Assessment & Plan (1) Hematuria: Code(s): R31.9 - Hematuria, unspecified Category: Medical Qualifiers: Hematuria type: asymptomatic microscopic Qualified Code(s): R31.21 - Asymptomatic microscopic hematuria (2) BPH (benign prostatic hyperplasia): Code(s): N40.0 - Benign prostatic hyperplasia without lower urinary tract symptoms Category: Medical Qualifiers: Lower urinary tract symptom presence: unspecified whether lower urinary tract symptoms present Qualified Code(s): N40.0 - Benign prostatic hyperplasia without lower urinary tract symptoms Plan Start alpha-wyatt Follow-up six-month Orders: Orders AMB Post Void Residual by ultrasound 06/05/25 N40.0 - Benign prostatic hyperplasia without lower urinary tract symptoms AMB Urinalysis Automated 06/05/25 Z13.9 - Encounter for screening, unspecified Urine Cytology 06/05/25 R31.21 - Asymptomatic microscopic hematuria Patient Instructions: This note is constructed using voice recognition software. While every effort has been made to ensure accuracy cellular tower climber errors may have been included. Imaging studies, laboratory and physical exam results were discussed and reviewed in detail. No major barriers to patient understanding were identified. An opportunity to ask questions regarding the treatment plan was provided. All questions were answered. The patient expressed understanding and agreement with the above treatment plan. The patient is aware they should contact our office by phone for worsening of their current condition or the appearance of new urologic symptoms. Compliance is encouraged with any medications and followup testing that is ordered. It is a privilege to participate in the urologic care of your patient. If you have any questions or concerns regarding treatment for the above conditions, or other urologic issues, please do not hesitate to contact me. The office telephone contact is [phone]. Sincerely, Dr Jonathan Mendez MD, [facility] - Urology Compassionate Specialist Care for the Genitourinary System Coding Level of Care Code New Pt Level 4 (45128) Diagnoses Asymptomatic microscopic hematuria R31.21 Hematuria type: asymptomatic microscopic Benign prostatic hyperplasia, unspecified whether lower urinary tract symptoms present N40.0 Lower urinary tract symptom presence: unspecified whether lower urinary tract symptoms present CPT Codes Post Residual Void - PVR CPT Code: 58275-Wfff Void Residual by ultrasound ([id number])
== END 2025-06-05 15:53 | disposition home or self-care (01) ==
LOC: HO.HUSH 15:16
PROVIDERS: PCP Internal Medicine; Visit Provider Urology
DX: R31.21 Asymptomatic microscopic hematuria (principal); N40.0 Benign prostatic hyperplasia without lower urinary tract symptoms
CPT/HCPCS: 99204